=== PATIENT | male | born 1940 | race African-American/Black ===

== ENCOUNTER 2017-10-18 15:07 | Emergency (ER) | payer OTHER ==
[~2017-10-18] VITALS: Ht 185.4 cm; Wt 81.7 kg
--- NOTE | ~2017-10-18 | EKG ---
[address] [address] [place] [address] ELECTROCARDIOGRAM REPORT Name: QUE CHRISTIANSON [facility] [id number] Admission: 10/18/17 Attend Phys: Discharge: 10/18/17 Date of : 40 Report #: [id number] THIS REPORT FOR: //name// [facility] ED Test Date: 2017-10-18 Test Time: 16:41:50 Pat Name: QUE CHRISTIANSON Department: Room: Gender: M Railroad Purchasing Agent: : 1940 Requested By: Mariam Ding Order Number: [id number] MD: Pablo King Measurements Intervals [place] Rate: 73 P: 41 [place]: 162 QRS: 6 QRSD: 81 T: 40 QT: 407 QTc: 449 Interpretive Statements Sinus rhythm Atrial premature complexes in couplets Borderline T wave abnormalities Compared to ECG 07/19/2016 03:15:59 Atrial premature complex(es) now present T-wave abnormality now present Electronically Signed On 10-19-2017 8:51:30 CDT by Pablo King [email or web address] <ELECTRONICALLY SIGNED> By: Pablo King MD, [facility] 10/19/17 0851 164 40 Pablo King MD, [facility] /EPI
[~2017-10-18 15:07] MED LIST: AMOXICILLIN 50500 MG PO; ARICEPT10 M1 PO; ASPIR 8181 MG PO; AZITHROMYCIN 2250 MG PO; BRIMONIDINE TAR1 BO1; CARVEDILOL12.5 MG PO; COMBIGAN EYE DR10 ML OPHTHALMIC; COREG25 MG PO; ENOXAPARIN40 MG/0.1 SUBQ; FLOMAX0.4 MG PO; GLUCOPHAGE1000 MG PO; GLYBURIDE 5 MG T5 MG PO; HUMALOG100 UNIT/1 SQ; HUMALOG100 UNIT/1 SUBQ; HUMALOG100 UNIT/2 SQ; HYDROCHLOROTHIA25 M1 PO; HYDROCHLOROTHIA25 M2 PO; LANTUS SC; LANTUS SOL100 UNIT/1 SQ; LANTUS100 UNIT/M SUBQ; LISINOPRIL20 MG PO; NORCO 5-325 TA1 EACH PO; NOVOLOG100 UNIT/1 SUBQ; PLAVIX 75 MG TA75 M1 PO; PROZAC20 MG PO; REFRESH CLASSI1 EACH OPHTHALMIC; SIMVASTATIN40 MG PO; TIMOLOL MA0.25 %/5 M; TRAZODONE HCL50 MG PO; ZOCOR 20 MG TAB20 M1 PO
[2017-10-18 15:33] LABS: ABSOLUTE NEUTROPHILS 2.1 thou/uL (1.4-8.2); BASOPHILS 1.2 % (0.0-2.0); EOSINOPHILS 4.7 % (0.0-3.0); HEMATOCRIT 30.3 % (42.0-52.0); HEMOGLOBIN 9.9 gm/dL (14.0-18.0); LYMPHOCYTES 35.8 % (24.0-44.0); MCH 26.2 pg (26.0-34.0); MCHC 32.8 g/dL (28.0-37.0); MCV 79.8 fL (80.0-100.0); PLATELET COUNT 292 thou/uL (150-400); POLYS 47.3 % (36.0-66.0); RBC 3.79 mil/uL (4.50-6.00); RDW 15.9 % (10.5-14.5); WBC 4.5 thou/uL (4.0-11.0)
[2017-10-18 15:42] LABS: ANION GAP 5 mmol/L (7-16); BUN 22 mg/dL (7-18); CALCIUM 8.5 mg/dL (8.5-10.1); CHLORIDE 109 mmol/L (98-107); CO2 28 mmol/L (21-32); CREATININE 1.3 mg/dL (0.7-1.3); GLUCOSE 232 mg/dL (74-106); POTASSIUM 4.1 mmol/L (3.5-5.1); SODIUM 142 mmol/L (136-145)
[2017-10-18 15:48] LABS: ALBUMIN 2.7 g/dL (3.4-5.0); DIRECT BILIRUBIN < 0.1 mg/dL (<0.1-0.3); LIPASE 196 U/L (73-393); SGOT 12 U/L (15-37); SGPT 19 U/L (30-65); TOTAL BILIRUBIN 0.2 mg/dL (<0.1-1.0); TOTAL PROTEIN 6.1 g/dL (6.4-8.2)
[2017-10-18 17:14] LABS: URINE BILIRUBIN NEGATIVE (Negative); URINE BLOOD NEGATIVE (Negative); URINE CLARITY CLEAR; URINE COLOR YELLOW; URINE GLUCOSE-RANDOM* NEGATIVE (Negative); URINE KETONES NEGATIVE (Negative); URINE LEUKOCYTES-REFLEX NEGATIVE (Negative); URINE NITRITE-REFLEX NEGATIVE (Negative); URINE PROTEIN (DIPSTICK) NEGATIVE (Negative); URINE SPECIFIC GRAVITY 1.025 (1.005-1.035); URINE UROBILINOGEN 0.2 E.U./dl (0.2-1.0)
[2017-10-18 18:08] VITALS: BP 123/54
== END 2017-10-18 18:08 | disposition home or self-care (01) ==
LOC: ER 15:07
PROVIDERS: Emergency Medicine
DX: R19.7 Diarrhea, unspecified (principal); R10.30 Lower abdominal pain, unspecified; E11.9 Type 2 diabetes mellitus without complications; G30.9 Alzheimer's disease, unspecified; F02.80 Dementia in other diseases classified elsewhere, unspecified severity, without behavioral disturbance, psychotic disturbance, mood disturbance, and anxiety; Z86.73 Personal history of transient ischemic attack (TIA), and cerebral infarction without residual deficits; Z87.891 Personal history of nicotine dependence

== ENCOUNTER 2018-07-18 22:34 | Inpatient (IN) | payer OTHER ==
[~2018-07-18] VITALS: Ht 185.4 cm; Wt 99.8 kg
[2018-07-18 22:36] VITALS: BP 129/72
[2018-07-18 23:03] LABS: ABSOLUTE NEUTROPHILS 8.4 thou/uL (1.4-8.2); BASOPHILS 1.1 % (0.0-2.0); EOSINOPHILS 0.2 % (0.0-3.0); HEMATOCRIT 33.5 % (42.0-52.0); HEMOGLOBIN 10.9 gm/dL (14.0-18.0); LYMPHOCYTES 14.2 % (24.0-44.0); MCHC 32.6 g/dL (28.0-37.0); MCV 76.7 fL (80.0-100.0); MONOCYTES 7.8 % (1.0-8.0); PLATELET COUNT 278 thou/uL (150-400); POLYS 76.7 % (36.0-66.0); RBC 4.37 mil/uL (4.50-6.00); RDW 15.3 % (10.5-14.5)
[2018-07-18 23:08] LABS: ANION GAP 9 mmol/L (7-16); BUN 18 mg/dL (7-18); CALCIUM 8.9 mg/dL (8.5-10.1); CHLORIDE 99 mmol/L (98-107); CO2 29 mmol/L (21-32); GLUCOSE 230 mg/dL (74-106); POTASSIUM 3.8 mmol/L (3.5-5.1); SODIUM 137 mmol/L (136-145)
[2018-07-18 23:17] LABS: ALBUMIN 2.8 g/dL (3.4-5.0); MAGNESIUM 1.4 mg/dL (1.8-2.4); SGOT 11 U/L (15-37); SGPT 12 U/L (30-65); TOTAL BILIRUBIN 0.2 mg/dL (<0.1-1.0); TOTAL PROTEIN 6.6 g/dL (6.4-8.2); TROPONIN-I <0.06 ng/mL (<0.06)
[2018-07-19] VITALS (7 sets, daily range): BP systolic 107–156; BP diastolic 49–76
[2018-07-19] MEDS ORDERED: HYDROCHLOROTHIA25 M2 PO (00:06)
[2018-07-19 00:11] LABS: AMP/METHAMP Negative (Negative); BARBITURATES Negative (Negative); BENZODIAZEPINES Negative (Negative); COCAINE Negative (Negative); METHADONE Negative (Negative); OPIATES Negative (Negative); PCP Negative (Negative)
[2018-07-19 00:13] LABS: URINE BILIRUBIN NEGATIVE (Negative); URINE BLOOD 3+ (Negative); URINE CLARITY CLOUDY; URINE COLOR RED; URINE GLUCOSE-RANDOM* TRACE (Negative); URINE KETONES NEGATIVE (Negative); URINE LEUKOCYTES-REFLEX 2+ (Negative); URINE NITRITE-REFLEX NEGATIVE (Negative); URINE PROTEIN (DIPSTICK) 2+ (Negative); URINE SPECIFIC GRAVITY 1.015 (1.005-1.035); URINE UROBILINOGEN 0.2 E.U./dl (0.2-1.0)
[2018-07-19 00:17] LABS: CASTS None Seen /LPF (None Seen); SQUAMOUS 4-10 Moderate /LPF (0-3); URINE RBC >20 Many /HPF (0-2); WBC CLUMPS Moderate (None Seen)
[2018-07-19 00:18] LABS: CRYSTALS None Seen /LPF (None Seen)
--- NOTE | 2018-07-19 05:56 | NUR ---
PATIENT IS ALERT TO SELF AND SITUATION. PATIENT IS BLIND AND REQUIRES ASSISTANCE WITH ADLS. PATIENT USES A CANE AT HOME. PATIENT IS GOING TO BE UP ONE TO TWO. PATIENT APPEARED TO BE IN A FIB AT ONE POINT WAS UNABLE TO CATCH IT ON EKG. PATIENT IS ACHS ACCUCHECK FOR DM. PATIENT IS INCONTIENT. NO FEVER. PATIENT IS A POOR HISTORIAN. PATIENT HAS BACK PAIN ONLY WITH MOVEMENT. PATIENT IS RESTING COMFORTABLY IN BED. WCM. PATIENT IS PROGRESSING TO GOALS.
--- NOTE | 2018-07-19 08:24 | EKG ---
[address] [place] [address] ELECTROCARDIOGRAM REPORT Name: QUE CHRISTIANSON MAKAYLA Room #: 359-P ADM IN M.R.#: [id number] ������������������ Admission: 07/19/18 ������������������ Attend Phys: Eulogio Conroy MD Discharge: ������������������ Date of : 40 Report #: [id number] ����������������������������������������������������������������� [id number] THIS REPORT FOR: //name// [facility] ED Test Date: 2018-07-18 Test Time: 22:42:37 Pat Name: QUE CHRISTIANSON Department: Room: 359 Gender: M Cash Applications Manager: KMJonathan : 1940 Requested By: Chapo Gauthier Order Number: [id number] MD: Pablo King Measurements Intervals [place] Rate: 102 P: 54 [place]: 155 QRS: 36 QRSD: 78 T: 45 QT: 357 QTc: 466 Interpretive Statements Sinus tachycardia Borderline T wave abnormalities Compared to ECG 10/18/2017 16:41:50 Sinus rhythm no longer present Atrial premature complex(es) no longer present Electronically Signed On 07-19-2018 8:24:12 CDT by Pablo King [email or web address] ��������������������������������������������� <ELECTRONICALLY SIGNED> ���������������������������������������� By: Pablo King MD, [facility] ��������������������������������������������� 07/19/18 0824 2242 224 Pablo King MD, [facility] /EPI
--- NOTE | 2018-07-19 08:25 | EKG ---
[address] [address] ELECTROCARDIOGRAM REPORT Name: QUE CHRISTIANSON MAKAYLA Room #: 359-P ADM IN M.R.#: [id number] ������������������ Admission: 07/19/18 ������������������ Attend Phys: Eulogio Conroy MD Discharge: ������������������ Date of : 40 Report #: [id number] ����������������������������������������������������������������� [id number] THIS REPORT FOR: //name// [facility] Test Date: 2018-07-19 Test Time: 05:47:36 Pat Name: QUE CHRISTIANSON Department: Room: 359 P Gender: M Lunchroom Supervisor: dane : 1940 Requested By: Eulogio Conroy Order Number: [id number] MD: Ricci Walters Measurements Intervals [place] Rate: 72 P: 48 [place]: 164 QRS: 20 QRSD: 82 T: 20 QT: 386 QTc: 423 Interpretive Statements Sinus rhythm Compared to ECG 10/18/2017 16:41:50 Atrial premature complex(es) no longer present T-wave abnormality no longer present Electronically Signed On 07-19-2018 8:25:20 CDT by Ricci Walters [email or web address] ��������������������������������������������� <ELECTRONICALLY SIGNED> ���������������������������������������� By: Ricci Walters MD ��������������������������������������������� 07/19/18 0825 0547 0547 Ricci Walters MD /EPI
--- NOTE | 2018-07-19 08:26 | EKG ---
[address] [address] ELECTROCARDIOGRAM REPORT Name: MEGHANQUE LEE Room #: 359-P ADM IN M.R.#: [id number] ������������������ Admission: 07/19/18 ������������������ Attend Phys: Eulogio Cnoroy MD Discharge: ������������������ Date of : 40 Report #: [id number] ����������������������������������������������������������������� [id number] THIS REPORT FOR: //name// [facility] Test Date: 2018-07-19 Test Time: 07:48:45 Pat Name: QUE CHRISTIANSON Department: Room: 359 P Gender: M Export Freight Manager: JULIANO : 1940 Requested By: Idania Guerrero Order Number: [id number] MD: Ricci Walters Measurements Intervals [place] Rate: 69 P: -29 [place]: 167 QRS: 20 QRSD: 84 T: 33 QT: 401 QTc: 430 Interpretive Statements Sinus rhythm Compared to ECG 10/18/2017 16:41:50 Atrial premature complex(es) no longer present T-wave abnormality no longer present Electronically Signed On 07-19-2018 8:26:43 CDT by Ricci Walters [email or web address] ��������������������������������������������� <ELECTRONICALLY SIGNED> ���������������������������������������� By: Ricci Walters MD ��������������������������������������������� 07/19/18 0826 0748 Ricci Walters MD /EPI
--- NOTE | 2018-07-19 15:23 | NUR ---
ASSESSMENT: CM REVIEWED CHART AND MET WITH PATIENT AT THE BEDSIDE. PT STATES IT IS HARD FOR HIM TO OPEN HIS EYES BECAUSE IT IS BRIGHT. PT WAS ADMITTED DUE TO WEAKNESS/UTI. PT REPORTS HE LIVES AT HOME WITH HIS BROTHER. PT STATING HE IS HAVING A HARD TIME STAYING AWAKE. CM ASKED IF CM CAN CONTACT HIS DAUGHTER FOR MORE INFORMATION AND HE STATED YES. TATO IS PATIENTS GRANDDAUGHTER AND ALSO WORKS AT [employer]. SHE REPORTS PATIENT LIVES AT HOME WITH HIS WELL HIS BROTHER STAYS THERE AND HIS SON. PT AND HIS HAVE MEDICAID SERVICES WHERE A WASHER BLANKET COMES IN 7 DAYS A WEEK FOR ABOUT 8 HOURS. PT REPORTS HE USES A CANE FOR AMBULATION. CM DISCUSSED ROLE. PT/OT RECOMMENDING SNF AND PT STATES HE WOULD BE AGREEABLE TO GO TO A SNF AND TO TALK WITH HIS FAMILY. CM DISCUSSED WITH TATO AND WILL LEAVE AN ADVANTRA LIST FOR HER TO REVIEW. SHE STATES SHE IS IN [place] BUT WILL BE AT THE HOSPITAL TOMORROW. CM WILL CONTINUE TO FOLLOW. NO PLANS FOR WEEKEND DISCHARGE.
--- NOTE | 2018-07-19 16:27 | NUR ---
AAOX2 PERSON AND PLACE. VERY SLEEPY ALL DAY BUT AROUSES FOR MEAL. POOR APPETITE NEEDS MAX ASSISTANCE WITH MEALS. INCONTINENT OF URINE AND STOOL THIS SHIFT. UP TO RECLINER WITH 2 ASSIST. IV LEFT AC WITH FLUIDS INFUSING. FAMILY HAS BEEN IN ROOM A FEW TIMES TODAY. LUNGS CLEAR ON ROOM AIR.
[2018-07-20] VITALS (7 sets, daily range): BP systolic 137–193; BP diastolic 64–87
--- NOTE | 2018-07-20 06:24 | NUR ---
SLEPT PART OF SHIFT. REPOSITIONED EVERY 2-3 HOURS FOR COMFORT AND SKIN CARE. INCONTINENT OF STOOL. MALE CATHETER IN PLACE. PATIENT TOOK OFF CATH X1 AND REPLACED. WORKING ON GOALS AND PLAN OF CARE FOR NOC. PROGRESSING SLOWLY TOWARDS DISCHARGE GOALS. NEEDS FREQUENT REASSURANCE WHERE IS AND WHY IS IN HOSPITAL. CONTINUE TO ASSES.
[2018-07-20 09:44] LABS: HEMATOCRIT 28.3 % (42.0-52.0); HEMOGLOBIN 9.1 gm/dL (14.0-18.0); MCH 25.2 pg (26.0-34.0); MCV 78.9 fL (80.0-100.0); RBC 3.59 mil/uL (4.50-6.00); RDW 15.9 % (10.5-14.5); WBC 5.9 thou/uL (4.0-11.0)
[2018-07-20 09:49] LABS: CALCIUM 8.3 mg/dL (8.5-10.1); CREATININE 0.9 mg/dL (0.7-1.3); MAGNESIUM 1.5 mg/dL (1.8-2.4); POTASSIUM 3.8 mmol/L (3.5-5.1)
--- NOTE | 2018-07-20 17:47 | NUR ---
Assumed care of pt at 0700. Today pt has been confused but is orientated to person. Pt is up with 1-2 assists, has been sitting up in chair, and has been up to commode. Pt is incontinent of stool but will sometimes notify when he needs to use the commode. One soft BM today in commode. Urine looks clear, dark yellow. Patient was pleasant through majority of day but seems to have increasing anxiety/agitation as the evening progresses. Son has been at bedside today and patient has spoken with on the phone. Pt's vital signs and labs have remained stable today. Patient is slowly progressing toward discharge goals. Will continue to monitor and assess.
[2018-07-21 03:25] VITALS: BP 199/94
--- NOTE | 2018-07-21 04:52 | NUR ---
SLEPT PART OF SHIFT. VERY CONFUSED TONIGHT LOOKING FOR , KEYS, BILLFOLD, ECT. CALLED AND PATIENT CALMED DOWN FOR SHORT PERIOD. PULLED MALE CATH OFF X2. INCONTINENT AT TIMES. TURNS SELF AND TRYING TO GET OUT OF BED STATING I NEED TO GO TO MY . WORKING ON GOALS AND PLAN OF CARE FOR NOC. REASSURE AND REORIENT PATIENT NEEDED. CONTINUE TO OBSERVE CLOSELY. BED ALARM ON. PROGRESSING SLOWLY TOWARDS DISCHARGE GOALS.
--- NOTE | 2018-07-21 04:58 | NUR ---
SYSTOLIC BLOOD PRESSURE ELEVATED TONIGHT. CREATIVE SERVICES DIRECTOR CALLED X2 AND ORDERS RECIEVED FOR IVP HYDRALIZINE. CONTINUE TO ASSES. INCONTINENT URINE AT TIMES
[2018-07-21 05:00] LABS: FOLIC ACID 13.7 ng/mL (8.6-58.9)
[2018-07-21 07:16] VITALS: BP 158/94
[2018-07-21 09:39] LABS: HEMATOCRIT 31.9 % (42.0-52.0); HEMOGLOBIN 10.3 gm/dL (14.0-18.0); MCH 25.2 pg (26.0-34.0); MCHC 32.4 g/dL (28.0-37.0); MCV 77.8 fL (80.0-100.0); RBC 4.1 mil/uL (4.50-6.00); RDW 15.7 % (10.5-14.5); WBC 5.2 thou/uL (4.0-11.0)
[2018-07-21 09:42] LABS: CALCIUM 8.6 mg/dL (8.5-10.1); CREATININE 0.8 mg/dL (0.7-1.3); MAGNESIUM 1.5 mg/dL (1.8-2.4); POTASSIUM 3.6 mmol/L (3.5-5.1)
[2018-07-21 09:46] LABS: % SATURATION 13 % (20-39); IRON 28 ug/dL (65-175); TIBC 216 ug/dL (250-450)
--- NOTE | 2018-07-21 10:40 | EKG ---
[address] [address] [facility] [place] [address] ELECTROCARDIOGRAM REPORT Name: QUE CHRISTIANSON Room #: 359-P ADM IN M.R.#: [id number] ������������������ Admission: 07/19/18 ������������������ Attend Phys: Eulogio Conroy MD Discharge: ������������������ Date of : 40 Report #: [id number] ����������������������������������������������������������������� [id number] THIS REPORT FOR: //name// [facility] Test Date: 2018-07-21 Test Time: 10:09:32 Pat Name: QUE CHRISTIANSON Department: Room: 359 P Gender: M Veterinary Receptionist: BS : 1940 Requested By: Eulogio Conroy Order Number: [id number] MD: Bernardino Mcconnell Measurements Intervals [place] Rate: 76 P: 50 ID: [id number] QRS: 36 QRSD: 80 T: 30 QT: 405 QTc: 456 Interpretive Statements Sinus rhythm Ventricular premature complex Compared to ECG 07/19/2018 07:48:45 Ventricular premature complex(es) now present Electronically Signed On 07-21-2018 10:40:21 CDT by Bernardino Mcconnell [email or web address] ��������������������������������������������� <ELECTRONICALLY SIGNED> ���������������������������������������� By: Bernardino Mcconnell MD ��������������������������������������������� 07/21/18 1040 D: 04/1008 08 Bernardino Mcconnell MD /LENNY
[2018-07-21 16:23] VITALS: BP 145/71
--- NOTE | 2018-07-21 19:29 | NUR ---
Assumed care of patient at 0700. BP improved this shift. Patient SR on telemetry, but noticing bursts of ST, rates 130s-150s, sustaining 30 seconds to [address] Conroy. EKG and labs ordered. Increased Coreg. Magnesium replaced IV x1. Rates have since improved. Patient alert and oriented x1, confused. Patient pleasant and easily redirectable this shift until about 1400. Patient getting increasingly confused and agitated. Becoming combative with staff and unable to redirect. Walked hallways with patient in attempt to help redirect, but unsuccessful. Notified Dr. Conroy. Order for 1 mg Haldol PRN. Given without any successful effects. Updated physician. Order for onetime 2 mg IV Haldol, as well as PRN order. Order for 1:1 sitter and PRN Ativan, as well. PRN Haldol IV given and patient has since began to calm down some. Is still restless and fidgety, but is more appropriate with staff and more cooperative with cares. Updated granddaughter, Bouchra, over the phone of changes and sitter at bedside. Patient currently sitting in chair, fall precautions in place, sitter at bedside. Not yet progressing towards POC. Will continue to monitor.
[2018-07-21 20:54] VITALS: BP 135/82
[2018-07-22 03:55] VITALS: BP 125/75
[2018-07-22 05:16] LABS: HEMATOCRIT 27.8 % (42.0-52.0); HEMOGLOBIN 9.1 gm/dL (14.0-18.0); MCH 25.1 pg (26.0-34.0); MCHC 32.6 g/dL (28.0-37.0); MCV 77.1 fL (80.0-100.0); RBC 3.61 mil/uL (4.50-6.00); RDW 15.5 % (10.5-14.5); WBC 3.6 thou/uL (4.0-11.0)
[2018-07-22 05:23] LABS: CALCIUM 8.4 mg/dL (8.5-10.1); CREATININE 0.8 mg/dL (0.7-1.3); MAGNESIUM 1.6 mg/dL (1.8-2.4); POTASSIUM 3.1 mmol/L (3.5-5.1)
--- NOTE | 2018-07-22 06:20 | NUR ---
Assumed care at 1845. Pt resting in bed. AOX1. No issues with BP or HR. VSS. Pt hasnt been agressive throught the shift. Contract Consultant discontinued sitter. Only gave haloperidol one time for mild aggression. Been in lowest position. No identified needs at the moment. Will continue to monitor.
[2018-07-22 07:53] VITALS: BP 149/59
--- NOTE | 2018-07-22 10:41 | NUR ---
SW reviewed chart and spoke with nursing. Pt is progressing towards goals for discharge. Pt had 1:1 sitter over the weekend. Sitter was discontinued during shift superintendent caustic cresylate. DARY spoke with pt's grand-dtr, Bouchra, via phone to discuss post-acute placement. Per Bouchra, family would like referrals to be sent to [facility] and [facility]. Will need insurance authorization. materials planner to fax referrals to SNFs for review. DARY is following to assist as needed with discharge planning.
--- NOTE | 2018-07-22 10:51 | NUR ---
DP SENT INITIAL REFERRAL FOR SKILLED TO [facility] AND [facility], LIKELY DISCHARGE TOMORROW. DP ALSO NOTIFIED ADMISSIONS DEPTARTMENT AT BOTH FACILITIES.
[2018-07-22 15:29] VITALS: BP 136/58
[2018-07-22 17:31] LABS: POTASSIUM 3.9 mmol/L (3.5-5.1)
[2018-07-22 19:05] VITALS: BP 141/73
--- NOTE | 2018-07-22 19:33 | NUR ---
care of pt assumed this am @ ~0700. pt noted to be resting in bed quietly and comfortably most of the day. pt calm, cooperative and pleasant the majority of the day, the only time he became frustrated and uncooperative was when his condom catheter had to be removed and replaced (x3) due to his picking and pulling at it to dislodge it. pt w/ a fair appetite for food and fluid today, pt was not will to feed himself today when set up and encouraged, but would consume food when fed and drink liquid when placed at his lips. pt w/o n/v/d today. pt noted to be incontinent of urine several times today. pt has denied the co pain today. pt up to the chair, for several hours today, by pt and back to bed from his chair by x2 nrsg staff. x2 family members at early this afternoon. possible rehab/skilled facility placement per cm/sw in the next few days.
[2018-07-23 03:30] VITALS: BP 140/69
--- NOTE | 2018-07-23 04:43 | NUR ---
ASSUMED PT CARE AROUND 1900. ORIENTED TO SELF ONLY. PT IS CONFUSED BUT HAS BEEN COOPERATIVE AND NOT IMPULSIVE THIS SHIFT. PT SLEPT MOST OF THE NIGHT. RESP EVEN AND UNLABORED. IVF INFUSING ORDERED. REPOSITIONED TO PREVENT SKIN BREAKDOWN. VSS. FALL PRECAUTIONS IN PLACE. PROGRESSING SLOWLY TOWARD POC GOALS. WILL CONTINUE TO MONITOR FURTHER.
[2018-07-23 05:37] LABS: HEMOGLOBIN 9.2 gm/dL (14.0-18.0); MCH 25.6 pg (26.0-34.0); MCHC 32.9 g/dL (28.0-37.0); MCV 77.8 fL (80.0-100.0); RBC 3.6 mil/uL (4.50-6.00); RDW 15.5 % (10.5-14.5); WBC 3.3 thou/uL (4.0-11.0)
[2018-07-23 05:42] LABS: CALCIUM 8.2 mg/dL (8.5-10.1); CREATININE 0.9 mg/dL (0.7-1.3); MAGNESIUM 1.7 mg/dL (1.8-2.4); POTASSIUM 3.6 mmol/L (3.5-5.1)
[2018-07-23 07:36] VITALS: BP 172/68
--- NOTE | 2018-07-23 11:34 | NUR ---
program services planner sent updates to both Aparna Farmer and Courtney bradley [place], patient may possibly dc today, requested facility let us know if they can accept patient.
--- NOTE | 2018-07-23 13:41 | NUR ---
SW reviewed chart and spoke with nursing and attending physician. Pt is progressing toward goals for discharge to post-acute. [facility] did onsite eval today and can accept pt. Awaiting input from [facility] at this time. [facility] liaison was supposed to come to onsite eval today. DARY spoke with pt's granddtrBouchra, via phone to provide update and discuss SNF. Family preference is [facility]. SW notified Roshni in admissions at [facility]. Awiating input from [facility] at this time. Will need insurance authorization. SW is following to assist as needed with discharge planning.
[2018-07-23 16:09] VITALS: BP 166/75
[2018-07-23 19:17] VITALS: BP 122/67
--- NOTE | 2018-07-24 01:56 | NUR ---
0130 BLOOD SUGAR IS 59. HE WAS ENCOUARGED TO EAT A SMALL SNACK AND IS NOW 121. HE IS UNCOOPERATIVE AND WANTING TO LEAVE. HE IS PULLING AT IV LINE AND REFUSING TO ALOW THE CONDOM CATHER TO BE REPLACED
[2018-07-24 03:08] VITALS: BP 191/81
[2018-07-24 04:30] VITALS: BP 139/56
--- NOTE | 2018-07-24 06:21 | NUR ---
pt has been awake most of the night. he needs encouraging to use the urinal. however, he is incontinent most of the times. refuses to allow the placement of the condom catheter tonight. he can be very uncooperative and has difficulty with cooridinating his movements, getting out of bed to bsc.
[2018-07-24 07:33] VITALS: BP 144/69
[2018-07-24 08:51] VITALS: BP 144/69
--- NOTE | 2018-07-24 10:11 | NUR ---
DARY received call from pt's granddtr, Bouchra, stating that pt's family is agreeable with pt going to [facility]. DARY updated [place] pricing coordinator and liaison who has submitted for insurance authorization. DARY is following to assist as needed with discharge planning.
[2018-07-24] MEDS ORDERED: COREG25 MG PO (12:45)
[2018-07-24] MEDS ORDERED: DEPAKOTE ER250 MG PO (12:45)
[2018-07-24] MEDS ORDERED: IRON325 PO (12:45)
[2018-07-24] MEDS ORDERED: VITAMIN B-12500 MCG PO (12:45)
[2018-07-24] MEDS ORDERED: B12INJ IM (12:54)
--- NOTE | 2018-07-24 17:10 | NUR ---
Assumed pt care this am, initially pt was calm but very forgetful and looked for his . Pt is incontinent but was able to place a condm cat initially. Pt can eat on his own with assistance, pt is blind. Towards mid afternoon pt was starting to get aggitated and removed his condom cat. Pt wanted to see his who is on [facility]. POC followed and medication given. DC orders given and report called out to [facility] nurse, pt was seen by his grandaughtter (Bouchra) as transport has come to pick him up for transfer. IV removed, pt cleaned and dressed up. Pt is now dc.
== END 2018-07-24 17:00 | DRG 689 ==
LOC: ER 22:34 → EROBS 07-19 02:01 → 3W 07-19 02:01
PROVIDERS: Emergency Medicine; Nurse Practitioner Family; ADMIT Internal Medicine
DX: N39.0 Urinary tract infection, site not specified (principal); E43 Unspecified severe protein-calorie malnutrition; I47.1 Supraventricular tachycardia; G93.40 Encephalopathy, unspecified; H54.7 Unspecified visual loss; G30.9 Alzheimer's disease, unspecified; F02.80 Dementia in other diseases classified elsewhere, unspecified severity, without behavioral disturbance, psychotic disturbance, mood disturbance, and anxiety; E88.09 Other disorders of plasma-protein metabolism, not elsewhere classified; E83.42 Hypomagnesemia; E11.65 Type 2 diabetes mellitus with hyperglycemia; D50.9 Iron deficiency anemia, unspecified; E87.6 Hypokalemia; E53.8 Deficiency of other specified B group vitamins; Z86.73 Personal history of transient ischemic attack (TIA), and cerebral infarction without residual deficits; Z87.891 Personal history of nicotine dependence; Z79.899 Other long term (current) drug therapy
CPT/HCPCS: 10879

== ENCOUNTER 2019-04-08 11:26 | Inpatient (IN) | payer OTHER ==
[~2019-04-08] VITALS: Ht 182.9 cm; Wt 75.5 kg
[2019-04-08 11:26] VITALS: BP 128/48
[~2019-04-08 11:26] MED LIST changes: +B12INJ IM; +DEPAKOTE ER250 MG PO; +IRON325 PO; +VITAMIN B-12500 MCG PO
[2019-04-08 11:52] LABS: ABSOLUTE NEUTROPHILS 2.1 thou/uL (1.4-8.2); BASOPHILS 1.1 % (0.0-2.0); HEMATOCRIT 30.6 % (42.0-52.0); HEMOGLOBIN 9.8 gm/dL (14.0-18.0); LYMPHOCYTES 30.9 % (24.0-44.0); MCH 25.3 pg (26.0-34.0); MCHC 32.2 g/dL (28.0-37.0); MCV 78.7 fL (80.0-100.0); MONOCYTES 10.5 % (1.0-8.0); PLATELET COUNT 273 thou/uL (150-400); POLYS 54.5 % (36.0-66.0); RBC 3.88 mil/uL (4.50-6.00); RDW 14.6 % (10.5-14.5); WBC 3.9 thou/uL (4.0-11.0)
[2019-04-08 12:18] LABS: CALCIUM 8.9 mg/dL (8.5-10.1); POTASSIUM 3.7 mmol/L (3.5-5.1)
[2019-04-08 12:23] LABS: ALBUMIN 2.6 g/dL (3.4-5.0); TOTAL BILIRUBIN 0.2 mg/dL (<0.1-1.0); TOTAL PROTEIN 6.1 g/dL (6.4-8.2)
[2019-04-08 13:08] LABS: URINE BILIRUBIN NEGATIVE (Negative); URINE BLOOD NEGATIVE (Negative); URINE CLARITY CLEAR; URINE COLOR YELLOW; URINE GLUCOSE-RANDOM* 2+ (Negative); URINE KETONES NEGATIVE (Negative); URINE LEUKOCYTES-REFLEX NEGATIVE (Negative); URINE NITRITE-REFLEX NEGATIVE (Negative); URINE PROTEIN (DIPSTICK) TRACE (Negative); URINE SPECIFIC GRAVITY 1.025 (1.005-1.035)
--- NOTE | 2019-04-08 13:14 | EKG ---
[facility] [place] [address] ELECTROCARDIOGRAM REPORT Name: QUE CHRISTIANSON MAKAYLA [id number] Admission: 04/08/19 Attend Phys: Discharge: Date of : 40 Report #: [id number] THIS REPORT FOR: //name// [facility] ED Test Date: 2019-04-08 Test Time: 11:28:08 Pat Name: QUE CHRISTIANSON Department: Room: Gender: M Clinical Research Manager: SHAHBAZ : 1940 Requested By: Coral Sy Order Number: [id number] MD: Pablo King Measurements Intervals [place] Rate: 73 P: 34 [place]: 158 QRS: 34 QRSD: 143 T: 98 QT: 422 QTc: 465 Interpretive Statements Sinus rhythm Left ventricular hypertrophy Baseline wander in lead(s) II,III,aVF Compared to ECG 07/21/2018 10:09:32 Ventricular premature complex(es) no longer present Electronically Signed On 04-08-2019 13:13:52 GOVERNMENT AFFAIRS RESEARCHER by Pablo King [email or web address] <ELECTRONICALLY SIGNED> By: Pablo King MD, [facility] 04/08/19 1313 1128 1128 Pablo King MD, [facility] /EPI
[2019-04-08 15:50] VITALS: BP 102/43
[2019-04-08 16:05] VITALS: BP 102/43
[2019-04-08 16:15] VITALS: BP 123/63
--- NOTE | 2019-04-08 16:27 | NUR ---
PT ADMITTED TO ROOM 213. PT WITHOUT FAMILY PRESENT. PT ORIENTED TO PERSON ONLY. DOES NOT COOPERATE WITH CARES. PULLS AT EVERYTHING, TAKING OFF TELE PATCHES AND GOWN CONSTANTLY. PT PULLED OUT IV ON THE WAY TO ROOM FROM ED. UNABLE TO ANSWER ADMISSION QUESTIONS. BED ALARM SET. WILL CONTINUE TO MONITOR.
--- NOTE | 2019-04-08 17:34 | NUR ---
RECALLED WHAT WAS AVAILABLE FOR ADMISSION, UNABLE TO ASSESS THE REST
--- NOTE | 2019-04-08 17:55 | NUR ---
SPOKE WITH AAN, WILL HOLD OFF ON IV INSERTION FOR NOW UNLESS IV MEDICATIONS ORDERED
[2019-04-08 20:30] VITALS: BP 142/65
[2019-04-09 00:15] VITALS: BP 132/63
[2019-04-09 02:00] VITALS: BP 132/63
--- NOTE | 2019-04-09 05:15 | NUR ---
PATIENTS CARES WERE ASSUMED AT SHIFT CHANGE. PATIENT EAT A DINNER WITH HIS GRADAUGHTER WHILE SHE WAS HERE, STILL ALOT OF CONFUSION TO WHEN AND HOW MUCH MEDICATIONS HE TAKESE DSILY. HOURLY ROUNDS BEEN DONE. THE BED IS IN A LOW AEN LOCKED POSITION. THE BED ALARM IS ON
[2019-04-09 08:40] VITALS: BP 129/53
[2019-04-09 09:40] LABS: HEMATOCRIT 32.8 % (42.0-52.0); HEMOGLOBIN 10.3 gm/dL (14.0-18.0); MCH 24.9 pg (26.0-34.0); MCHC 31.5 g/dL (28.0-37.0); RBC 4.15 mil/uL (4.50-6.00); RDW 14.8 % (10.5-14.5); WBC 3.1 thou/uL (4.0-11.0)
[2019-04-09 09:54] LABS: ALBUMIN 2.5 g/dL (3.4-5.0); CALCIUM 8.6 mg/dL (8.5-10.1); CREATININE 0.9 mg/dL (0.7-1.3); MAGNESIUM 1.7 mg/dL (1.8-2.4); POTASSIUM 3.6 mmol/L (3.5-5.1); TOTAL BILIRUBIN 0.2 mg/dL (<0.1-1.0); TOTAL PROTEIN 5.9 g/dL (6.4-8.2)
[2019-04-09 10:21] LABS: TSH 1.56 uIU/mL (0.358-3.740)
[2019-04-09 12:21] VITALS: BP 130/59
--- NOTE | 2019-04-09 13:07 | 2DMMODE ---
[facility] [address] [place] [address] 2 D/M-MODE ECHOCARDIOGRAM Name: QUE CHRISTIANSON MAKAYLA Room #: 217-P ADM IN M.R.#: [id number] Admission: 04/08/19 Attend Phys: Swapnil Thomas MD Discharge: Date of : 40 Report #: [id number] THIS REPORT FOR: //name// APPROVED REPORT Study performed: 04/09/2019 11:02:35 EXAM: Comprehensive 2D, Doppler, and color-flow Echocardiogram Patient Location: Bedside Room #: 217 Status: routine BSA: 1.99 HR: 65 bpm BP: 129/53 mmHg Rhythm: NSR Other Information Study Quality: Adequate Indications Diabetes CAD Syncope Hypertension/HDD 2D Dimensions RVDd: 32.29 mm IVSd: 11.47 (7-11mm) LVOT Diam: 21.21 (18-24mm) LVDd: 39.72 mm PWd: 10.78 (7-11mm) Ascending Ao: 31.06 (22-36mm) LVDs: 29.77 (25-40mm) Aortic Root: 36.01 mm IVC: 17.00 mm Volumes Left Atrial Volume (Systole) Single Plane 4CH: 68.99 mL Single Plane 2CH: 42.13 mL LA ESV Index: 29.00 mL/m2 Aortic Valve AoV Peak Thee.: 1.27 m/s AO Peak Gr.: 6.44 mmHg LVOT Max P.16 mmHg LVOT Max V: 0.89 m/s CAROLYN Vmax: 2.47 cm2 Mitral Valve [facility] [address] [place] [address] 2 D/M-MODE ECHOCARDIOGRAM Name: QUE CHRISTIANSON MAKAYLA Room #: 217-P [facility] IN .R.#: [id number] Admission: 04/08/19 Attend Phys: Swapnil Thomas MD Discharge: Date of : 40 Report #: [id number] E/A Ratio: 0.7 MV Decel. Time: 353.45 ms MV E Max Thee.: 0.80 m/s MV A Thee.: 1.17 m/s MV PHT: 102.50 ms IVRT: 221.45 ms Pulmonary Valve PV Peak Thee.: 1.01 m/s PV Peak Gr.: 4.08 mmHg Pulmonary Vein P Vein S: 0.61 m/s P Vein A: 0.21 m/s P Vein D: 0.39 m/s P Vein A Dur.: 92.3 msec P Vein S/D Ratio: 1.56 Tricuspid Valve TR Peak Thee.: 2.52 m/s TR Peak Gr.: 25.33 mmHg PA Pressure: 30.00 mmHg Left Ventricle The left ventricle is normal size. There is normal LV segmental wall motion. There is normal left ventricular wall thickness. The left ventricular systolic function is normal. The left ventricular ejection fraction is within the normal range. LVEF is >55%. Grade I - abnormal relaxation pattern. Right Ventricle The right ventricle is normal size. The right ventricular systolic function is normal. Atria The left atrium size is normal. Right atrium is at the upper limits of normal. Aortic Valve The aortic valve is normal in structure. Trace to mild aortic regurgitation. There is no aortic valvular stenosis. Mitral Valve The mitral valve is normal in structure. Trace to mild mitral regurgitation. No evidence of mitral valve stenosis. Tricuspid Valve The tricuspid valve is normal in structure. There is mild tricuspid regurgitation. Estimated PAP 30 mmHg. There is no pulmonary [facility] [address] [place] [address] 2 D/M-MODE ECHOCARDIOGRAM Name: QUE CHRISTIANSON Room #: 217-P [facility] IN .R.#: [id number] Admission: 04/08/19 Attend Phys: Swapnil Thomas MD Discharge: Date of : 40 Report #: [id number] hypertension. Pulmonic Valve The pulmonary valve is normal in structure. Trace pulmonic regurgitation. Great Vessels The aortic root is normal in size. IVC is normal in size and collapses >50% with inspiration. Pericardium There is no pericardial effusion. <Conclusion> The left ventricle is normal size. LVEF is >55%. The aortic valve is normal in structure. Trace to mild aortic regurgitation. The mitral valve is normal in structure. Trace to mild mitral regurgitation. The tricuspid valve is normal in structure. There is mild tricuspid regurgitation. Estimated PAP 30 mmHg. There is no pulmonary hypertension. The pulmonary valve is normal in structure. Trace pulmonic regurgitation. There is no pericardial effusion. <ELECTRONICALLY SIGNED> By: Mahamed Salazar MD 04/09/19 1306 1306 1306 Mahamed Salazar MD /INF
--- NOTE | 2019-04-09 15:57 | NUR ---
Met with patient who has dementia. Sp with Bouchra moyer granddtr. patient resides in home with and brother in law. Patient uses a wc in home. He has medicaid caregivers 7 days a week for 7 hours a day. Caregivers for both patient and his . In evening GLENNA able to assist brother and to bed. Dicussed with Bouchra therapy recommends home with HH care. Left HH list in room for her to review.
[2019-04-09 18:32] VITALS: BP 142/64
[2019-04-09 19:42] VITALS: BP 152/54
--- NOTE | 2019-04-09 20:15 | NUR ---
ASSUMMED PT CARE AT APPROXIMATELY 0700. PT AWAKE AND ORIENTED TO SELF. PT C HX OF DEMENTIA. FREQUENT REORIENTATION PROVIDED. ASSESSMENT CHARTED. FALL PRECAUTIONS IN PLACE. PT DENIES HAVING CHEST PAIN. PT DENIES HAVING SOB. PT DENIES HAVING ACUTE PAIN. PT AND PT'S FAMILY EDUCATED ABOUT POC. PT AND PT'S FAMILY STATED UNDERSTANDING AND DENIED HAVING FURTHER QUESTIONS. VITAL SIGNS STABLE. BLOOD SUGARS STABLE. PT HAD LOOSE STOOLS X2. PT UP TO CHAIR THROUGHOUT SHIFT. ENCOURAGED PT TO EAT AND DRINK LIQUIDS. PT COMFORTABLE IN BED. PT DENIES HAVING FURTHER CONCERNS.
[2019-04-10 04:33] VITALS: BP 147/67
[2019-04-10 05:18] LABS: CALCIUM 8.5 mg/dL (8.5-10.1); CREATININE 0.9 mg/dL (0.7-1.3); MAGNESIUM 1.6 mg/dL (1.8-2.4); POTASSIUM 3.5 mmol/L (3.5-5.1)
[2019-04-10 05:39] LABS: HEMATOCRIT 30.7 % (42.0-52.0); HEMOGLOBIN 9.8 gm/dL (14.0-18.0); MCH 25.2 pg (26.0-34.0); MCV 78.9 fL (80.0-100.0); RBC 3.89 mil/uL (4.50-6.00); RDW 14.8 % (10.5-14.5); WBC 3.7 thou/uL (4.0-11.0)
--- NOTE | 2019-04-10 07:49 | NUR ---
PATIENTS CARE WAS ASSUMED AT SHIFT CHANGE. PATIENT WAS ASSESSED AND MEDS ERE PASSED. PATIENT HAD ONE LINEN CHANGE THIS SHIFT. HOURLY ROUNDING WAS DONE. THE BED IS IN A LOW AND LOCKED POSITION. THE BED ALARM IS ON
[2019-04-10 08:00] VITALS: BP 133/53
[2019-04-10 11:30] VITALS: BP 107/64
[2019-04-10 11:52] VITALS: BP 133/53
[2019-04-10] MEDS ORDERED: VITAMIN B-121000 MC2 SUBLING ×2 (12:20→17:14)
--- NOTE | 2019-04-10 12:58 | NUR ---
Pt is dcing home today with hh orders. Pt's gdtr indicates they perfer [facility] as they have had [facility] in the past. Dc communications planner to fax orders and confirm with [facility]. Family to transport him home this afternoon. Care team updated.
[2019-04-10 13:00] VITALS: BP 133/53
--- NOTE | 2019-04-10 14:02 | NUR ---
[facility] SPOKE WITH YURIDIA IN INTAKE SHE RECEIVED REFERRAL AND CAN ACCEPT.
--- NOTE | 2019-04-10 16:37 | NUR ---
ASSUMED CARE 0700, VITAL SIGNS STABLE, DENIES SOB, DENIES PAIN, NSR WITH TELE RATE IN THE MID 60'S, COMPLIANT WITH CARES, INCONTINENT OF BLADDER NO BM NOTED AT THIS TIME. POOR NUTRITIONAL INTAKE LESS THEN 50% OF AM AND NOON MEAL. FLUIDS ENCOURAGED. MAG REPLACED PER ORDERS. DC HOME WITH HOME HEALTH. IV AND TELE REMOVED. FAMILY ARE THE PRIM CAREGIVERS
[2019-04-10] MEDS ORDERED: GLUCOPHAGE1000 MG PO (17:14)
--- NOTE | 2019-04-14 11:46 | EEG ---
[facility] [place] [address] ELECTROENCEPHALOGRAM Name: QUE CHRISTIANSON Room #: 217-P [facility] IN M.R.#: [id number] Admission: 04/08/19 Attend Phys: Swapnil Thomas MD Discharge: 04/10/19 Date of : 40 Report #: [id number] THIS REPORT FOR: //name// CC: NIMA physician/PCP Swapnil Thomas DATE OF SERVICE: 04/10/2019 This patient is being evaluated for altered mental status and syncope. EEG was done by placing the electrode by standard 10-20 system of electrode placement. Both referential and sequential montages were used for recording. Background activity does go up to about 8-9 Hz, but it is intermixed with theta range slowing on both sides. The patient went to sleep that is associated with bilateral slowing and vertex sharp waves. Throughout the record, no active epileptiform activity was noticed. IMPRESSION: This patient's EEG does not demonstrate any active epileptiform activity. EEG does indicate intermixed slowing on both sides. That is a nonspecific abnormality, which can occur with dementia, encephalopathy, effect of psychotropic medication, etc. Clinical correlation is recommended. <ELECTRONICALLY SIGNED> By: Alok Dwyer MD 04/14/19 1146 1115 1133 Alok Dwyer MD /nt
== END 2019-04-10 17:05 | disposition home health service (06) | DRG 308 ==
LOC: ER 11:26 → EROBS 15:40 → 2N 15:40 → EROBS 15:55 → 2N 16:02
PROVIDERS: Internal Medicine; Nurse Practitioner Family; ADMIT Internal Medicine
PROC: 5A09357 Assistance with Respiratory Ventilation, Less than 24 Consecutive Hours, Continuous Positive Airway Pressure (ICD-10-PCS; principal; 2019-04-08)
DX: R00.1 Bradycardia, unspecified (principal); E43 Unspecified severe protein-calorie malnutrition; H54.3 Unqualified visual loss, both eyes; E11.9 Type 2 diabetes mellitus without complications; G30.9 Alzheimer's disease, unspecified; F02.80 Dementia in other diseases classified elsewhere, unspecified severity, without behavioral disturbance, psychotic disturbance, mood disturbance, and anxiety; I10 Essential (primary) hypertension; I25.10 Atherosclerotic heart disease of native coronary artery without angina pectoris; E78.5 Hyperlipidemia, unspecified; D64.9 Anemia, unspecified; T44.7X5A Adverse effect of beta-adrenoreceptor antagonists, initial encounter; Z86.73 Personal history of transient ischemic attack (TIA), and cerebral infarction without residual deficits; Z87.891 Personal history of nicotine dependence; Z95.1 Presence of aortocoronary bypass graft; Y92.89 Other specified places as the place of occurrence of the external cause
CPT/HCPCS: 10081

== ENCOUNTER 2019-07-23 15:12 | Emergency (ER) | payer OTHER ==
[~2019-07-23] VITALS: Ht 185.4 cm; Wt 68.0 kg
[~2019-07-23 15:12] MED LIST changes: +VITAMIN B-121000 MC2 SUBLING
[2019-07-23 15:34] LABS: URINE BILIRUBIN NEGATIVE (Negative); URINE BLOOD NEGATIVE (Negative); URINE CLARITY CLEAR; URINE COLOR YELLOW; URINE GLUCOSE-RANDOM* 3+ (Negative); URINE KETONES NEGATIVE (Negative); URINE LEUKOCYTES-REFLEX NEGATIVE (Negative); URINE NITRITE-REFLEX NEGATIVE (Negative); URINE PROTEIN (DIPSTICK) NEGATIVE (Negative); URINE UROBILINOGEN 0.2 E.U./dl (0.2-1.0)
--- NOTE | 2019-07-23 15:38 | EKG ---
[facility] [place] [address] ELECTROCARDIOGRAM REPORT Name: QUE CHRISTIANSON Room #: PRE [facility]..#: [id number] Admission: Attend Phys: Discharge: Date of : 40 Report #: [id number] THIS REPORT FOR: cc: NIMA - Ashleigh family physician/PCP NIMA - No family physician/PCP Ricci Walters MD ~ THIS REPORT FOR: //name// [facility] ED Test Date: 2019-07-23 Test Time: 15:21:13 Pat Name: QUE CHRISTIANSON Department: Room: Gender: M Medicaid Eligibility Specialist: LALITHA : 1940 Requested By: Sulaiman Sandoval Order Number: [id number] MD: Ricci Walters Measurements Intervals [place] Rate: 74 P: 25 RI: 165 QRS: 48 QRSD: 84 T: 32 QT: 402 QTc: 446 Interpretive Statements Sinus rhythm Compared to ECG 04/08/2019 11:28:08 Left ventricular hypertrophy no longer present Electronically Signed On 07-23-2019 15:36:34 CDT by Ricci Walters [email or web address] <ELECTRONICALLY SIGNED> By: Ricci Walters MD 07/23/19 1536 1521 152 Ricci Walters MD /LENNY
[2019-07-23 15:56] LABS: ABSOLUTE NEUTROPHILS 3.3 thou/uL (1.4-8.2); BASOPHILS 1.2 % (0.0-2.0); EOSINOPHILS 2.3 % (0.0-3.0); HEMATOCRIT 34.4 % (42.0-52.0); HEMOGLOBIN 11.2 gm/dL (14.0-18.0); LYMPHOCYTES 22.7 % (24.0-44.0); MCH 25.6 pg (26.0-34.0); MCHC 32.5 g/dL (28.0-37.0); MCV 78.9 fL (80.0-100.0); MONOCYTES 9.4 % (1.0-8.0); PLATELET COUNT 312 thou/uL (150-400); POLYS 64.4 % (36.0-66.0); RBC 4.36 mil/uL (4.50-6.00); WBC 5.1 thou/uL (4.0-11.0)
[2019-07-23 16:04] LABS: ANION GAP 5 mmol/L (7-16); BUN 18 mg/dL (7-18); CALCIUM 8.2 mg/dL (8.5-10.1); CHLORIDE 105 mmol/L (98-107); CO2 30 mmol/L (21-32); CREATININE 1.3 mg/dL (0.7-1.3); GLUCOSE 418 mg/dL (74-106); POTASSIUM 4.2 mmol/L (3.5-5.1); SODIUM 140 mmol/L (136-145)
[2019-07-23 16:13] LABS: ALBUMIN 2.7 g/dL (3.4-5.0); LIPASE 162 U/L (73-393); SGOT 8 U/L (15-37); SGPT 16 U/L (30-65); TOTAL BILIRUBIN 0.2 mg/dL (<0.1-1.0); TOTAL PROTEIN 6.2 g/dL (6.4-8.2); TROPONIN-I <0.06 ng/mL (<0.06)
[2019-07-23 18:06] VITALS: BP 140/62
== END 2019-07-23 18:06 | disposition home or self-care (01) ==
LOC: ER 15:12
PROVIDERS: Emergency Medicine
DX: R53.1 Weakness (principal); R41.82 Altered mental status, unspecified; E11.9 Type 2 diabetes mellitus without complications; I10 Essential (primary) hypertension; F17.210 Nicotine dependence, cigarettes, uncomplicated; G30.9 Alzheimer's disease, unspecified; F02.80 Dementia in other diseases classified elsewhere, unspecified severity, without behavioral disturbance, psychotic disturbance, mood disturbance, and anxiety; Z79.899 Other long term (current) drug therapy; Z86.73 Personal history of transient ischemic attack (TIA), and cerebral infarction without residual deficits

== ENCOUNTER 2020-05-19 12:55 | Emergency (ER) | payer OTHER ==
[~2020-05-19] VITALS: Ht 170.2 cm; Wt 63.5 kg
[2020-05-19 14:42] LABS: ABSOLUTE NEUTROPHILS 2.4 thou/uL (1.4-8.2); BASOPHILS 1.1 % (0.0-2.0); EOSINOPHILS 3.5 % (0.0-3.0); HEMATOCRIT 37.5 % (42.0-52.0); HEMOGLOBIN 11.3 gm/dL (14.0-18.0); LYMPHOCYTES 35.5 % (24.0-44.0); MCH 25.4 pg (26.0-34.0); MCHC 30.2 g/dL (28.0-37.0); PLATELET COUNT 304 thou/uL (150-400); POLYS 48.9 % (36.0-66.0); RBC 4.46 mil/uL (4.50-6.00); RDW 18.3 % (10.5-14.5); WBC 4.8 thou/uL (4.0-11.0)
[2020-05-19 14:49] LABS: ANION GAP 7 mmol/L (7-16); BUN 26 mg/dL (7-18); CALCIUM 8.9 mg/dL (8.5-10.1); CHLORIDE 109 mmol/L (98-107); CO2 27 mmol/L (21-32); CREATININE 1.5 mg/dL (0.7-1.3); GLUCOSE 181 mg/dL (74-106); POTASSIUM 4.7 mmol/L (3.5-5.1); SODIUM 143 mmol/L (136-145); URINE BILIRUBIN NEGATIVE (Negative); URINE BLOOD TRACE (Negative); URINE CLARITY CLEAR; URINE COLOR YELLOW; URINE GLUCOSE-RANDOM* NEGATIVE (Negative); URINE KETONES NEGATIVE (Negative); URINE LEUKOCYTES-REFLEX TRACE (Negative); URINE NITRITE-REFLEX NEGATIVE (Negative); URINE PROTEIN (DIPSTICK) NEGATIVE (Negative); URINE SPECIFIC GRAVITY >= 1.030 (1.005-1.035); URINE UROBILINOGEN 0.2 E.U./dl (0.2-1.0)
--- NOTE | 2020-05-19 14:54 | EKG ---
[place] [address] [facility] [place] [address] ELECTROCARDIOGRAM REPORT Name: QUE CHRISTIANSON Room #: REG RAFAEL Alfaro#: [id number] Admission: 05/19/20 Attend Phys: Discharge: Date of : 40 Report #: [id number] [facility] ED Test Date: 2020-05-19 Test Time: 13:39:39 Pat Name: QUE CHRISTIANSON Department: Room: Gender: M Patrol Conductor: : 1940 Requested By: Juli Jones Order Number: [id number] MD: Conrad Vega Measurements Intervals [place] Rate: 65 P: 10 WI: 173 QRS: 46 QRSD: 82 T: 88 QT: 451 QTc: 469 Interpretive Statements Sinus rhythm Nonspecific T abnormalities, lateral leads Compared to ECG 07/23/2019 15:21:13 T-wave abnormality now present Electronically Signed On 05-19-2020 14:54:33 MERCHANDISING COORDINATOR by Conrad Vega [email or web address] <ELECTRONICALLY SIGNED> By: Conrad Vega MD, [facility] 05/19/20 1454 1339 1339 Conrad Vega MD, FACC /EPI
[2020-05-19 14:59] LABS: ALBUMIN 2.6 g/dL (3.4-5.0); SGOT 11 U/L (15-37); SGPT 13 U/L (16-63); TOTAL BILIRUBIN 0.2 mg/dL (0.2-1.0); TOTAL PROTEIN 5.8 g/dL (6.4-8.2); TROPONIN-I <0.06 ng/mL (<0.06)
[2020-05-19 16:18] VITALS: BP 123/60
[2020-05-19 23:43] LABS: ANISOCYTOSIS 2+
== END 2020-05-19 16:33 | disposition home or self-care (01) ==
LOC: ER 12:55
PROVIDERS: Emergency Medicine
DX: E86.0 Dehydration (principal); R06.00 Dyspnea, unspecified; I10 Essential (primary) hypertension; E11.9 Type 2 diabetes mellitus without complications; Z79.01 Long term (current) use of anticoagulants; Z79.899 Other long term (current) drug therapy; Z87.891 Personal history of nicotine dependence

== ENCOUNTER 2020-08-14 09:56 | Inpatient (IN) | payer OTHER ==
[~2020-08-14] VITALS: Ht 185.4 cm; Wt 79.4 kg
[2020-08-14 09:56] VITALS: BP 151/55
[2020-08-14 12:03] LABS: ABSOLUTE NEUTROPHILS 2.9 thou/uL (1.4-8.2); ANION GAP 10 mmol/L (7-16); BUN 17 mg/dL (7-18); CALCIUM 9.1 mg/dL (8.5-10.1); CHLORIDE 108 mmol/L (98-107); CO2 30 mmol/L (21-32); CREATININE 0.8 mg/dL (0.7-1.3); EOSINOPHILS 2.4 % (0.0-3.0); GLUCOSE 182 mg/dL (74-106); HEMATOCRIT 32.2 % (42.0-52.0); HEMOGLOBIN 10.3 gm/dL (14.0-18.0); LYMPHOCYTES 29.9 % (24.0-44.0); MCH 25.8 pg (26.0-34.0); MCHC 31.9 g/dL (28.0-37.0); MCV 80.9 fL (80.0-100.0); MONOCYTES 9.8 % (1.0-8.0); PLATELET COUNT 391 thou/uL (150-400); POLYS 56.9 % (36.0-66.0); POTASSIUM 4.4 mmol/L (3.5-5.1); RBC 3.99 mil/uL (4.50-6.00); SODIUM 148 mmol/L (136-145)
[2020-08-14 12:12] LABS: ALBUMIN 2.4 g/dL (3.4-5.0); SGOT 10 U/L (15-37); SGPT 15 U/L (16-63); TOTAL BILIRUBIN 0.2 mg/dL (0.2-1.0); TOTAL PROTEIN 6.7 g/dL (6.4-8.2); TROPONIN-I <0.06 ng/mL (<0.06)
[2020-08-14 14:08] LABS: URINE BILIRUBIN NEGATIVE (Negative); URINE BLOOD 3+ (Negative); URINE CLARITY CLEAR; URINE COLOR YELLOW; URINE GLUCOSE-RANDOM* TRACE (Negative); URINE KETONES NEGATIVE (Negative); URINE LEUKOCYTES-REFLEX NEGATIVE (Negative); URINE NITRITE-REFLEX NEGATIVE (Negative); URINE PROTEIN (DIPSTICK) 2+ (Negative); URINE SPECIFIC GRAVITY >= 1.030 (1.005-1.035)
[2020-08-14 14:16] LABS: WBC CLUMPS Few (None Seen)
[2020-08-14 14:17] LABS: URINE RBC >20 Many /HPF (NONE SEEN)
[2020-08-14 14:19] LABS: SQUAMOUS 4-10 Moderate /LPF (0-3); YEAST-REFLEX Present (None Seen)
[2020-08-14 14:20] LABS: CASTS None Seen /LPF (None Seen); CRYSTALS None Seen /LPF (None Seen)
[2020-08-14 16:33] VITALS: BP 147/74
[2020-08-14 16:57] VITALS: BP 119/51
[2020-08-14 17:18] LABS: ALBUMIN 2.5 g/dL (3.4-5.0); TOTAL PROTEIN 6.6 g/dL (6.4-8.2)
[2020-08-14 20:14] VITALS: BP 129/61
[2020-08-15 07:22] VITALS: BP 137/58
[2020-08-15 10:36] LABS: HEMATOCRIT 30.7 % (42.0-52.0); HEMOGLOBIN 9.9 gm/dL (14.0-18.0); MCH 26.1 pg (26.0-34.0); MCHC 32.4 g/dL (28.0-37.0); MCV 80.5 fL (80.0-100.0); RBC 3.81 mil/uL (4.50-6.00); RDW 13.8 % (10.5-14.5); WBC 4.6 thou/uL (4.0-11.0)
[2020-08-15 10:44] LABS: CALCIUM 8.8 mg/dL (8.5-10.1); CREATININE 0.9 mg/dL (0.7-1.3); MAGNESIUM 1.7 mg/dL (1.8-2.4)
[2020-08-15 15:57] VITALS: BP 154/58
[2020-08-15 19:14] VITALS: BP 147/61
[2020-08-15 20:30] VITALS: BP 147/61
[2020-08-16 05:18] LABS: HEMATOCRIT 29.1 % (42.0-52.0); HEMOGLOBIN 9.6 gm/dL (14.0-18.0); MCH 26.4 pg (26.0-34.0); MCV 80.2 fL (80.0-100.0); RBC 3.63 mil/uL (4.50-6.00); RDW 14.3 % (10.5-14.5); WBC 3.6 thou/uL (4.0-11.0)
[2020-08-16 05:35] LABS: CALCIUM 8.4 mg/dL (8.5-10.1); CREATININE 0.8 mg/dL (0.7-1.3); MAGNESIUM 1.9 mg/dL (1.8-2.4); POTASSIUM 3.9 mmol/L (3.5-5.1)
[2020-08-16 07:57] VITALS: BP 125/56
[2020-08-16 07:59] VITALS: BP 140/63
[2020-08-16 08:02] VITALS: BP 125/56
--- NOTE | 2020-08-16 08:30 | EKG ---
[address] [address] ELECTROCARDIOGRAM REPORT Name: QUE CHRISTIANSON Room #: 452-P ADM IN M.R.#: [id number] Admission: 08/14/20 Attend Phys: Eulogio Conroy MD Discharge: Date of : 40 Report #: [id number] [facility] ED Test Date: 2020-08-14 Test Time: 10:19:29 Pat Name: QUE CHRISTIANSON Department: Room: [facility] Gender: M Gripper Installer: JCHAIBARBARA : 1940 Requested By: Juli Jones Order Number: [id number] MD: Pablo King Measurements Intervals [place] Rate: 75 P: 32 ND: 149 QRS: 65 QRSD: 85 T: 66 QT: 401 QTc: 448 Interpretive Statements Sinus rhythm Left ventricular hypertrophy Compared to ECG 05/19/2020 13:39:39 No significant change was found Electronically Signed On 08-16-2020 8:30:13 CDT by Pablo King [email or web address] <ELECTRONICALLY SIGNED> By: Pablo King MD, [facility] 08/16/20 0830 1019 1019 Pablo King MD, FACC /EPI
[2020-08-16 15:15] VITALS: BP 126/47
[2020-08-16 19:32] VITALS: BP 147/76
[2020-08-17 08:01] VITALS: BP 130/58
[2020-08-17 16:16] VITALS: BP 142/63
[2020-08-17 20:46] VITALS: BP 154/71
[2020-08-18 07:45] VITALS: BP 131/46
[2020-08-18 19:53] VITALS: BP 134/52
[2020-08-19 07:30] VITALS: BP 135/55
[2020-08-19] MEDS ORDERED: IRON325 PO (15:41)
[2020-08-19] MEDS ORDERED: COLACE100 MG PO (15:42)
== END 2020-08-19 17:16 | DRG 640 ==
LOC: ER 09:56 → 4W 16:23 → EROBS 16:23 → 4W 17:25
PROVIDERS: Emergency Medicine; ADMIT Internal Medicine; ATTEND Internal Medicine
DX: E87.0 Hyperosmolality and hypernatremia (principal); E43 Unspecified severe protein-calorie malnutrition; N39.0 Urinary tract infection, site not specified; E86.0 Dehydration; D64.9 Anemia, unspecified; Z20.822 Contact with and (suspected) exposure to COVID-19; H54.8 Legal blindness, as defined in USA; E11.9 Type 2 diabetes mellitus without complications; I10 Essential (primary) hypertension; R31.9 Hematuria, unspecified; M54.40 Lumbago with sciatica, unspecified side; G30.9 Alzheimer's disease, unspecified; R53.81 Other malaise; F02.80 Dementia in other diseases classified elsewhere, unspecified severity, without behavioral disturbance, psychotic disturbance, mood disturbance, and anxiety; Z86.73 Personal history of transient ischemic attack (TIA), and cerebral infarction without residual deficits; Z87.891 Personal history of nicotine dependence; Z68.23 Body mass index [BMI] 23.0-23.9, adult; Z79.899 Other long term (current) drug therapy
CPT/HCPCS: 10040

== ENCOUNTER 2020-09-14 11:39 | Inpatient (IN) | payer OTHER ==
[~2020-09-14] VITALS: Ht 185.4 cm; Wt 71.0 kg
[~2020-09-14 11:39] MED LIST changes: -ACETAMINOPHEN325 M1 PO; -AUGMENTIN 875-1 EACH PO; -BAYER CHEWABLE81 MG PO; -DEKAS PLUS SOF1 EACH PO; -GLUCOPHAGE500 MG PO; -MIRALAX119 GM PO; -PEPCID20 MG PO; -PERCOCET 10-321 EAC1 PO; -PRO-STAT AWC LI30 ML PO; -VITAMIN D310 MC4 PO
[2020-09-14 12:25] VITALS: BP 124/42
[2020-09-14 14:30] LABS: ABSOLUTE NEUTROPHILS 3.6 thou/uL (1.4-8.2); EOSINOPHILS 4.8 % (0.0-3.0); HEMATOCRIT 32.6 % (42.0-52.0); HEMOGLOBIN 10.2 gm/dL (14.0-18.0); LYMPHOCYTES 27.9 % (24.0-44.0); MCH 25.4 pg (26.0-34.0); MCHC 31.3 g/dL (28.0-37.0); MCV 81.1 fL (80.0-100.0); MONOCYTES 9.6 % (1.0-8.0); PLATELET COUNT 375 thou/uL (150-400); POLYS 56.7 % (36.0-66.0); RBC 4.02 mil/uL (4.50-6.00); RDW 15.3 % (10.5-14.5); WBC 6.4 thou/uL (4.0-11.0)
[2020-09-14 14:38] LABS: ALBUMIN 2.2 g/dL (3.4-5.0); CALCIUM 8.8 mg/dL (8.5-10.1); MAGNESIUM 1.8 mg/dL (1.8-2.4); POTASSIUM 4.8 mmol/L (3.5-5.1); TOTAL BILIRUBIN 0.1 mg/dL (0.2-1.0); TOTAL PROTEIN 6.7 g/dL (6.4-8.2)
[2020-09-14 14:53] LABS: APTT 22.7 Seconds (24.5-32.8); INR 0.9; PROTIME 9.6 Seconds (9.3-11.4)
[2020-09-14 17:20] VITALS: BP 121/56
[2020-09-14] MEDS ORDERED: VITAMIN D310 MC4 PO (17:58)
[2020-09-14] MEDS ORDERED: MIRALAX119 GM PO (18:00)
[2020-09-14] MEDS ORDERED: PERCOCET 10-321 EAC1 PO (18:01)
[2020-09-14] MEDS ORDERED: DEKAS PLUS SOF1 EACH PO (18:01)
[2020-09-14] MEDS ORDERED: PRO-STAT AWC LI30 ML PO (18:09)
[2020-09-14 20:18] VITALS: BP 119/53
[2020-09-15 05:03] VITALS: BP 135/54
--- NOTE | 2020-09-15 07:24 | NUR ---
Pt. has slept well during the night. Able to state name ,b day and he's at the hospital. He has been calm and cooperative. Explained procedure to pt. prior to performing since he is legally blind and he responded well. C/O feet hurting this am , morphine given with good result. Incontinent of bladder , total bed change done x2 then external cath placed. Heel protector in place. Bed alarm on for safety.
[2020-09-15 09:14] VITALS: BP 172/72
--- NOTE | 2020-09-15 12:17 | NUR ---
FAXED CLINICAL UPDATES TO [facility]. WILL CONFIRM WITH JESUS/ LIAISON THAT THEY RECEIVED. [facility] P [phone]; FAX [phone]
--- NOTE | 2020-09-15 15:09 | NUR ---
Chart reviewed and case discussed with the care team. Pt down for angio this afternoon and then transfer to CCU tele. The pt is from manager terminal care at [facility] and has lived there since 2018. He is up to a w/c but requires assistance with all of his adl's. He is confused per staff and requires redirection. Pt's jessica Shook works her in RT and has spoken with the attending. Lynda liason to f/u with family d/t care concerns. [facility] and can accept him for readmission when medically ready. Awaiting podiatry imput regarding his 2nd/3rd rt toes. The dc media planner will fax an update to the retirement. The facility does not have a dpoa on file. Cm to followup with family regarding his return to the facility pending his plan of care.
[2020-09-15 18:10] VITALS: BP 112/50
--- NOTE | 2020-09-15 18:45 | NUR ---
ASSUMED CARE OF PT AROUND 1430. PT ARRIVED FROM THE PLASTERER TENDER. LEFT GROIN SOFT C/D/I. PT ALERT TO SELF ONLY. VSS, IVF INFUSING PER ORDER. PT DENIES PAIN/SOA. PT DAUGHTER AT BEDSIDE. WILL CONTINUE TO MONITOR.
[2020-09-15 19:42] VITALS: BP 152/73
[2020-09-16 03:36] VITALS: BP 131/50
--- NOTE | 2020-09-16 06:53 | NUR ---
ASSUME CARE 1900. PT/VITALS STABLE. A/O TO PERSON ONLY BUT VERY PLEASANT AND EASILY REDIRECTED. SR ON MONITOR. NO DISTRESS NOTED THROUGH THE SHIFT. INCONTINENT OF BOWEL AND BLADDER WITH ADEQUATE URINE OUTPUT NOTED. INTERMITTENT BACK/ RIGHT EXTREMITY PAIN WITH RELIEF FROM PAIN MEDICATION. ASSESSMENT CHARTED. PROGRESSING WELL WITH POC. PLAN IS TO CONTINUE TO MONITOR/MANGE INFECTION AND WILL FOLLOW UP OUTPATIENT FOR LEFT LEG ARTERIAL COMPROMISE MANAGEMENT. WILL CONTINUE TO MONITOR AND FOLLOW WITH POC
[2020-09-16 07:36] VITALS: BP 147/69
[2020-09-16 10:03] LABS: HEMATOCRIT 28.8 % (42.0-52.0); HEMOGLOBIN 9.3 gm/dL (14.0-18.0); MCH 25.9 pg (26.0-34.0); MCHC 32.1 g/dL (28.0-37.0); MCV 80.7 fL (80.0-100.0); RBC 3.57 mil/uL (4.50-6.00); WBC 4.3 thou/uL (4.0-11.0)
[2020-09-16 10:17] LABS: CALCIUM 8.4 mg/dL (8.5-10.1); POTASSIUM 4.3 mmol/L (3.5-5.1)
[2020-09-16 11:52] VITALS: BP 114/48
[2020-09-16 15:12] VITALS: BP 139/55
[2020-09-16 19:30] VITALS: BP 142/63
[2020-09-17 03:50] VITALS: BP 149/51
[2020-09-17 05:36] LABS: ALBUMIN 1.8 g/dL (3.4-5.0); CALCIUM 8.1 mg/dL (8.5-10.1); CREATININE 0.8 mg/dL (0.7-1.3); PHOSPHORUS 3.3 mg/dL (2.5-4.9); POTASSIUM 3.7 mmol/L (3.5-5.1)
--- NOTE | 2020-09-17 06:31 | NUR ---
ASSESSMENT: PT REMAIN ALERT AND ORIENT TIMES ONE. PLEASANT, COOPERATIVE AND CALM FOR THE MOST PART UNTIL TIME FOR A NEW IV START. HAD A SMALL BM THIS SHIFT. DENIES PAIN BUT STATE THAT HE WOULD LET THIS RN KNOW WHEN OR IF HE NEEDED PAIN RELIEF. TURNED EVERY 2 HOURS, NO NEW SKIN ISSUES. SR/PAC'S PER MONITOR. SLEPT A FEW HOURS DURING THE NOC. POOR PROGRESS TOWARDS DS GOAL. WILL CONTINUE TO MONITOR.
[2020-09-17 08:41] VITALS: BP 138/45
[2020-09-17] MEDS ORDERED: AUGMENTIN 875-1 EACH PO (12:57)
[2020-09-17] MEDS ORDERED: ACETAMINOPHEN325 M1 PO (12:57)
[2020-09-17] MEDS ORDERED: PEPCID20 MG PO (12:57)
[2020-09-17] MEDS ORDERED: BAYER CHEWABLE81 MG PO (12:57)
[2020-09-17] MEDS ORDERED: GLUCOPHAGE500 MG PO (12:57)
--- NOTE | 2020-09-17 13:51 | NUR ---
FAXED DISCHARGE ODERS AND SUMMARY TO [facility]. WILL CONFIRM WITH JESUS/LIAISON THAT THEY RECEIVED. [facility] P [phone]; FAX [phone]; JESUS Alvarez [phone]
--- NOTE | 2020-09-17 14:41 | NUR ---
Pt dcing back to ltc are Tashi Eller this afternoon. They have arranged a stretcher van at 3-4pm and will get his w/c at the same time. Gdtr/teddy Shook updated. Encouraged her to call the socialworker at the facility to coordinate family mtg for his next care plan review. The DON will order podiatry services at the facility. Gdtr may try to take him to a college tutor as an outpt pending when their college tutor will see him. Orders faxed per the dc meeting planner and nursing to call report. Chart copy to be sent with the pt. Case closed.
--- NOTE | 2020-09-17 15:57 | NUR ---
assessment as charted - meds as per may - dayan diet and fluids, - pt requiring to be feed - ate well. no co's of pain or nausea. meds as per mar - toed care tended to on r foot. pt transfered back to the senior care this afternoon, report called - left unit via stretcher van
--- NOTE | 2020-09-21 17:09 | HC ---
[facility] [place] [address] CONSULTATION Name: QUE CHRISTIANSON Room #: 212-P [facility] IN M.R.#: [id number] Admission: 09/14/20 Attend Phys: Swapnil Thomas MD Discharge: 09/17/20 Date of : 40 Report #: [id number] THIS REPORT FOR: cc: Sasha Terrell Beth RNP Althoff, Jeffrey R. MD ~ DOC #: [id number] Bonifacio Chin MD DATE OF SERVICE: 09/14/2020 CHIEF COMPLAINT: Necrotic second and third toes. HISTORY OF PRESENT ILLNESS: This is an 80-year-old male patient, lives at [facility], was noted to have necrosis to the second and third toes of the right foot. He has been seen by Interventional Radiology, he was felt to need an angiogram. I have been asked to see him with regard to wound care. The patient can provide no information about himself due to advanced dementia. He is a little bit combative, but mostly somnolent. PAST MEDICAL HISTORY: Positive for cerebrovascular accident, coronary artery disease, glaucoma, type 2 diabetes mellitus, Alzheimer's type dementia, hypertension, anxiety, sarcopenia. SOCIAL HISTORY: Negative for alcohol or tobacco use. He is living in a nursing care facility. MEDICATIONS: Include donepezil, timolol, Flomax, ferrous sulfate, Plavix, vitamin B12, Glucophage, Depakote. ALLERGIES: No known drug allergies. FAMILY HISTORY: Unobtainable. REVIEW OF SYSTEMS: Unobtainable due to the patient's advanced dementia. PHYSICAL EXAMINATION: VITAL SIGNS: At this time include temperature is 36.4, pulse 84, respiratory rate of 18, blood pressure 124/42. GENERAL: This is a chronically ill-appearing male. The patient appears to be mostly somnolent, although is combative sometimes during his exam. HEAD: Normocephalic. NECK: Supple. LUNGS: Diminished. HEART: Irregular. ABDOMEN: Soft. EXTREMITIES: Demonstrate diminished distal pulses. He has some dry gangrene [facility] [address] [place] [address] CONSULTATION Name: QUE CHRISTIANSON Room #: 212-P [facility] IN M.R.#: [id number] Admission: 09/14/20 Attend Phys: Swapnil Thomas MD Discharge: 09/17/20 Date of : 40 Report #: [id number] changes to the right second and third toes. There is still the appearance of some viable tissue beneath what appears to be superficial eschar. It is very difficult to determine the full thickness. NEUROLOGICAL: The patient is not able to answer any questions. He seems to move all 4 extremities spontaneously. LABORATORY STUDIES: Sodium 143, potassium 4.8, chloride 106, CO2 of 29. BUN 23. Glucose 244. Albumin is 2.2. White blood cell count 6.4 with a hemoglobin of 10.2. CLINICAL IMPRESSION: 1. 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 2. Severe peripheral vascular disease. 3. Advanced dementia. 4. Hypertension. 5. Type 2 diabetes mellitus. 6. Severe protein-calorie malnutrition, albumin 2.2. RECOMMENDATIONS: At this point in time, we will recommend Betadine paint to the second and third toes. He will have angiography tomorrow for likely percutaneous intervention. We will obtain a podiatry consultation as to a surgical opinion regarding the toes. At this point, Betadine paint to preserve the dry stable eschar. At this time continue with medical management and nutritional support as possible. I appreciate being asked to see him in consultation. MD MIL Jackson/HANNA/CRISTOBAL <ELECTRONICALLY SIGNED> By: Bonifacio Chin MD 09/21/20 1709 0701 0815 Bonifacio Chin MD /nt
== END 2020-09-17 15:14 | DRG 270 ==
LOC: 3W 11:39 → 2N 09-15 13:56
PROVIDERS: ADMIT Internal Medicine; ATTEND Internal Medicine
PROC: 04CK3ZZ Extirpation of Matter from Right Femoral Artery, Percutaneous Approach (ICD-10-PCS; principal; 2020-09-15)
PROC: B4101ZZ Fluoroscopy of Abdominal Aorta using Low Osmolar Contrast (ICD-10-PCS; principal; 2020-09-15)
PROC: 047K3DZ Dilation of Right Femoral Artery with Intraluminal Device, Percutaneous Approach (ICD-10-PCS; principal; 2020-09-15)
PROC: B4181ZZ Fluoroscopy of Bilateral Renal Arteries using Low Osmolar Contrast (ICD-10-PCS; principal; 2020-09-15)
DX: E11.52 Type 2 diabetes mellitus with diabetic peripheral angiopathy with gangrene (principal); E43 Unspecified severe protein-calorie malnutrition; I96 Gangrene, not elsewhere classified; I69.359 Hemiplegia and hemiparesis following cerebral infarction affecting unspecified side; F03.90 Unspecified dementia, unspecified severity, without behavioral disturbance, psychotic disturbance, mood disturbance, and anxiety; I25.10 Atherosclerotic heart disease of native coronary artery without angina pectoris; E11.9 Type 2 diabetes mellitus without complications; F10.21 Alcohol dependence, in remission; I10 Essential (primary) hypertension; F41.9 Anxiety disorder, unspecified; D63.8 Anemia in other chronic diseases classified elsewhere; R53.81 Other malaise; E78.5 Hyperlipidemia, unspecified; Z66 Do not resuscitate; D50.9 Iron deficiency anemia, unspecified; L03.031 Cellulitis of right toe; H54.8 Legal blindness, as defined in USA; S91.109A Unspecified open wound of unspecified toe(s) without damage to nail, initial encounter; X58.XXXA Exposure to other specified factors, initial encounter; Z95.1 Presence of aortocoronary bypass graft; Z68.20 Body mass index [BMI] 20.0-20.9, adult; Z79.82 Long term (current) use of aspirin; Z79.899 Other long term (current) drug therapy; Y93.89 Activity, other specified; Y92.89 Other specified places as the place of occurrence of the external cause; Y99.8 Other external cause status
CPT/HCPCS: 10081; 10779; 10879

== ENCOUNTER → 2020-09-14 | Outpatient (CLI) | payer OTHER ==
[~2020-09-14] MED LIST changes: +ACETAMINOPHEN325 M1 PO; +AUGMENTIN 875-1 EACH PO; +BAYER CHEWABLE81 MG PO; +COLACE100 MG PO; +DEKAS PLUS SOF1 EACH PO; +GLUCOPHAGE500 MG PO; +MIRALAX119 GM PO; +PEPCID20 MG PO; +PERCOCET 10-321 EAC1 PO; +PRO-STAT AWC LI30 ML PO; -TIMOLOL MA0.25 %/5 M; +TIMOLOL MA0.25 %/52 EA. EYE; +VITAMIN D310 MC4 PO
== END ==
LOC: SJCVCIMAG 09:50
PROVIDERS: ATTEND Nuclear Medicine Nuclear Cardiology
DX: I70.201 Unspecified atherosclerosis of native arteries of extremities, right leg (principal); L97.519 Non-pressure chronic ulcer of other part of right foot with unspecified severity; E11.51 Type 2 diabetes mellitus with diabetic peripheral angiopathy without gangrene; E78.00 Pure hypercholesterolemia, unspecified; I10 Essential (primary) hypertension; E78.5 Hyperlipidemia, unspecified; Z79.82 Long term (current) use of aspirin; Z79.84 Long term (current) use of oral hypoglycemic drugs; Z79.899 Other long term (current) drug therapy; Z86.718 Personal history of other venous thrombosis and embolism

== ENCOUNTER 2021-03-11 09:36 | Inpatient (IN) | payer OTHER ==
[~2021-03-11] VITALS: Ht 165.1 cm; Wt 64.4 kg
--- NOTE | ~2021-03-11 | EMS ---
[address] [address] EMS Patient Care Report Name: QUE CHRISTIANSON Room #: 359-P [facility] IN M.R.#: [id number] Admission: 03/11/21 Attend Phys: Sonido Gonzales MD Discharge: 03/15/21 Date of : 40 Report #: [id number] THIS REPORT FOR: //name// Report Transmitted: 03/18/2021 14:06 EMS Care Summary [facility] Incident [id number] @ 03/11/2021 08:46 Incident Location [address] [place] [address] Patient QUE CHRISTIANSON Male, 80 Years 1940 Patient Address [address] [address] Patient History Diabetes,Hypertension (HTN),Gastro-Esophageal Reflux Disease (GERD), Patient Allergies No known allergies, Patient Medications Donepezil, Aspirin, Famotidine, Cyanocobalamin Co57, Depakote, Metformin, Cholecalciferol, Clopidogrel, Doxycycline, Chief Complaint Hyperglycemia Disposition Transported No Lights/[place] Dispatch Reason Sick Person Transported To [facility] Narrative 80 YOM in [address] [facility] Alec being attended to by Arun Huynh. [place] staff reports that the patient has a blood glucose level of 466 mg/dl. L41 reports 268 mg/dl. [place] staff is unsure if insulin was given prior to EMS call. Patient is non [address] [address] EMS Patient Care Report Name: QUE CHRISTIANSON Room #: 359-P [facility] IN M.R.#: [id number] Admission: 03/11/21 Attend Phys: Sonido Gonzales MD Discharge: 03/15/21 Date of : 40 Report #: [id number] verbal and was alert to painful stimuli. An IV was started in patient room, patient pulled away from the IV stick. Report received form [place] staff and L41, patient was placed onto the stretcher and secured with straps for transport. Stretcher was loaded into ambulance and secured. All moves were done without incident. Patient was placed onto the ECG monitored with BP and pulse ox. NS fluids were given during transport with 150 ML delivered. A recheck of BG at time of arrival at hospital was 292 MG/DL. Verbal report was given to RN during patient care transfer for MD assessment. Initial Vitals @PTAP: 111,R: 16,BP: 112/79,Pain: 0/10,GCS: 6,Glucose: 268,SpO2: 97,Revised Trauma: 10,NE Suspected: false @09:17P: 107,R: 21,BP: 118/76,Pain: 0/10,GCS: 9,SpO2: 98,Revised Trauma: 11,NE Suspected: false @09:27P: 107,R: 17,BP: 109/71,Pain: 0/10,GCS: 9,Glucose: 292,SpO2: 97,Revised Trauma: 11,NE Suspected: false @09:03P: 107,R: 16,BP: 109/65,Pain: 0/10,GCS: 9,Temp: 97.9F,SpO2: 97,Revised Trauma: 11,NE Suspected: false Assessments @08:56MENTAL:Other,Person Oriented,SKIN:HEENT:Eyes: Left: Other,Eyes: Right: Other,Head/Face: No Abnormalities,Neck/Airway: No Abnormalities,LUNG SOUNDS:General: No Abnormalities,ABDOMEN:General: No Abnormalities,PELVIS//GI:No Abnormalities,EXTREMITIES:Capillary Refill: Right Upper: < 2 Sec,Left Arm: Weakness,Right Leg: Weakness,Left Leg: Weakness,Right Arm: Weakness,PULSE:Radial: 2+ Normal,NEURO:No Abnormalities,@09:15MENTAL:Other,Person Oriented,SKIN:HEENT:Eyes: Left: Other,Eyes: Right: Other,Head/Face: No Abnormalities,Neck/Airway: No Abnormalities,LUNG SOUNDS:General: No Abnormalities,ABDOMEN:General: No Abnormalities,PELVIS//GI:No Abnormalities,EXTREMITIES:Left Leg: Weakness,Right Leg: Weakness,Capillary Refill: Left Upper: < 2 Sec,Right Arm: Weakness,Left Arm: Weakness,PULSE:Radial: 2+ Normal,NEURO:No Abnormalities, Impression Diabetic Hyperglycemia Procedures @08:56 ALS Assessment Response: UnchangedSucceeded @09:05 IV Bolus - Normal Saline (.9% NaCl) 150cc (20 ga) Site: Antecubital-Left Response: WorseSucceeded @09:02 3-Lead ECG Response: UnchangedSucceeded @PTAIV Therapy - Saline Lock 10cc (20 ga) Site: Antecubital-Left Response: UnchangedSucceeded Timeline [facility] [address] [place] [address] EMS Patient Care Report Name: QUE CHRISTIANSON Room #: 359-P [facility] IN M.R.#: [id number] Admission: 03/11/21 Attend Phys: Sonido Gonzales MD Discharge: 03/15/21 Date of : 40 Report #: [id number] LAUNDRY HOUSEKEEPING AIDE,IV Therapy - Saline Lock 10cc 20 ga Site: Antecubital-Left,Response: UnchangedSucceeded, LAUNDRY HOUSEKEEPING AIDE,BP: 112/79 M,PULSE: 111,RR: 16 R,SPO2: 97 Ox,ETCO2: ,B,PAIN: 0,GCS: 6, 08:45,Call Received 08:45,Psap Call 08:46,Dispatched 08:48,En Route 08:54,On Scene 08:56,At Patient 08:56,ALS Assessment,Response: UnchangedSucceeded, 09:02,3-Lead ECG,Response: UnchangedSucceeded, 09:03,BP: 109/65 M,PULSE: 107,RR: 16 R,SPO2: 97 Ox,ETCO2: ,BG: ,PAIN: 0,GCS: 9, 09:05,IV Bolus - Normal Saline (.9% NaCl) 150cc 20 ga Site: Antecubital-Left,Response: WorseSucceeded, 09:08,Depart Scene 09:17,BP: 118/76 M,PULSE: 107,RR: 21 R,SPO2: 98 Ox,ETCO2: ,BG: ,PAIN: 0,GCS: 9, 09:27,BP: 109/71 M,PULSE: 107,RR: 17 R,SPO2: 97 Ox,ETCO2: ,B,PAIN: 0,GCS: 9, 09:31,At Destination 10:02,Call Closed Disclaimer v1.1 Copyright 2020 [employer] This EMS Care Summary contains data elements from the applicable legal record (which may be displayed differently). It is designed to provide pertinent information for the following purposes: continuity of care, clinical quality, and state data reporting. The complete legal record is available to ED staff and administrators of the receiving hospital in [employer]'s Patient Tracker. All data is provided "as is."
[~2021-03-11 09:36] MED LIST changes: +ACETAMINOPHEN325 M1 PO; +AUGMENTIN 875-1 EACH PO; +BAYER CHEWABLE81 MG PO; +DEKAS PLUS SOF1 EACH PO; +GLUCOPHAGE500 MG PO; +MIRALAX119 GM PO; +PEPCID20 MG PO; +PERCOCET 10-321 EAC1 PO; +PRO-STAT AWC LI30 ML PO; +VITAMIN D310 MC4 PO
[2021-03-11 09:38] VITALS: BP 111/61
--- NOTE | 2021-03-11 09:52 | NUR ---
Pt hospice nurse bedside. States she is contacting pt family to see if they want to pursue aggressive treatment such as Head Ct or not.
--- NOTE | 2021-03-11 10:23 | NUR ---
Pt to CT at this time
--- NOTE | 2021-03-11 10:34 | NUR ---
pt back from ct
[2021-03-11 10:39] LABS: ABSOLUTE NEUTROPHILS 11.9 thou/uL (1.4-8.2); BASOPHILS 0.3 % (0.0-2.0); EOSINOPHILS 0.1 % (0.0-3.0); HEMATOCRIT 33.4 % (42.0-52.0); HEMOGLOBIN 9.8 gm/dL (14.0-18.0); LYMPHOCYTES 10.7 % (24.0-44.0); MCH 22.7 pg (26.0-34.0); MCHC 29.2 g/dL (28.0-37.0); MCV 77.8 fL (80.0-100.0); MONOCYTES 3.3 % (1.0-8.0); PLATELET COUNT 402 thou/uL (150-400); POLYS 85.6 % (36.0-66.0); RBC 4.29 mil/uL (4.50-6.00); RDW 17.6 % (10.5-14.5); WBC 13.9 thou/uL (4.0-11.0)
[2021-03-11 10:49] LABS: ALBUMIN 1.8 g/dL (3.4-5.0); CALCIUM 8.8 mg/dL (8.5-10.1); CREATININE 2.5 mg/dL (0.7-1.3); MAGNESIUM 2.8 mg/dL (1.8-2.4); PHOSPHORUS 4.6 mg/dL (2.6-4.7); POTASSIUM 3.8 mmol/L (3.5-5.1); TOTAL BILIRUBIN 0.1 mg/dL (0.2-1.0); TOTAL PROTEIN 6.7 g/dL (6.4-8.2)
[2021-03-11 11:55] LABS: ANISOCYTOSIS SLIGHT; HYPOCHROMASIA 1+; PLATELET ESTIMATE NORMAL
--- NOTE | 2021-03-11 16:34 | NUR ---
Pt brief changed and pt linens and pt were cleaned
--- NOTE | 2021-03-11 16:57 | NUR ---
Pt handed off to Argenis RODRIGUEZ
[2021-03-11 17:06] VITALS: BP 110/62
[2021-03-11 19:29] VITALS: BP 119/63
[2021-03-11 20:00] VITALS: BP 132/69
--- NOTE | 2021-03-11 22:59 | NUR ---
PT ADMITTED TO 3W ROOM 359, ARRIVED TO UNIT AT APPROXIMATELY 2004 ACCOMPANIED BY ED STAFF. PT'S DAUGHTER/DPOA PRESENT AT BEDSIDE DURING ADMISSION PROCESS. VSS, ON ROOM AIR. ADMISSION ASSESSMENTS COMPLETED. PT HAS GANGRENOUS TOES ON THE RIGHT FOOT. HAS EXTENSIVE SCARRING PRESENT ON SACRAL AREA, APPEARS TO BE FROM PREVIOUS WOUNDS. PT IS AWAKE AND WITHDRAWS TO ANY TOUCH, BUT IS NONVERBAL AND UNABLE TO FOLLOW COMMANDS. CONTRACTURES NOTED X4 EXTREMITIES. SINUS TACHYCARDIA NOTED ON CARDIAC MONITORING. ROOM AIR, 96-100%. WILL CONTINUE TO OBSERVE FOR CHANGES.
[2021-03-12 00:05] VITALS: BP 120/65
[2021-03-12 04:50] VITALS: BP 113/60
[2021-03-12 07:28] VITALS: BP 118/60
[2021-03-12 09:10] LABS: CALCIUM 8.6 mg/dL (8.5-10.1); CREATININE 2.1 mg/dL (0.7-1.3); POTASSIUM 3.7 mmol/L (3.5-5.1)
[2021-03-12 11:32] VITALS: BP 130/63
--- NOTE | 2021-03-12 11:53 | EKG ---
[address] [place] [address] ELECTROCARDIOGRAM REPORT Name: QUE CHRISTIANSON Room #: 359-P ADM IN M.R.#: [id number] Admission: 03/11/21 Attend Phys: Sonido Gonzales MD Discharge: Date of : 40 Report #: [id number] [facility] ED Test Date: 2021-03-11 Test Time: 11:07:57 Pat Name: QUE CHRISTIANSON Department: Room: 359 Gender: M Narcotics Investigator: [id number] : 1940 Requested By: Derick Callahan Order Number: [id number] MD: Pablo King Measurements Intervals [place] Rate: 107 P: IN: QRS: 71 QRSD: 90 T: 250 QT: 318 QTc: 425 Interpretive Statements Sinus tachycardia Nonspecific ST and T wave abnormality Compared to ECG 08/14/2020 10:19:[address] and T wave abnormality is now present Electronically Signed On 03-12-2021 11:53:25 CODING QUALITY COORDINATOR by Pablo King [email or web address] <ELECTRONICALLY SIGNED> By: Pablo King MD, [facility] 03/12/21 1153 1107 06 Pablo King MD, FACC /EPI
--- NOTE | 2021-03-12 12:52 | NUR ---
PER CHART REVIEW, PT. WAS PLACED ON HOSPICE JUST PRIOR TO ADMISSION DUE TO MOBILITY AND COGNITIVE STATUS DECLINE. PT. HAS NOT AMBULATED IN MONTHS. P.T. NOTE STATES SPOKE WITH PT.'S FACILITY WHO REPORT PT. REQUIRES DEPENDENT LIFT INTO W/C. GIVEN PT.'S PRIOR LEVEL OF FUNCTION, HOSPICE STATUS, PT. IS NOT APPRORPIATE FOR FORMAL OT EVALUATION. ALSO NOTED, PLAN FOR RIGHT AKA TOMORROW 03/13. OT WILL SIGN OFF AT THIS TIME, PLEASE RECONSULT IF PT.'S COGNITION AND ABILITY TO PARTICIPATE IN SKILLED THERAPY SERVICES IMPROVES.
[2021-03-12 13:21] LABS: URINE BILIRUBIN NEGATIVE (Negative); URINE BLOOD 3+ (Negative); URINE CLARITY SL CLOUDY; URINE COLOR YELLOW; URINE GLUCOSE-RANDOM* 3+ (Negative); URINE KETONES NEGATIVE (Negative); URINE LEUKOCYTES-REFLEX TRACE (Negative); URINE NITRITE-REFLEX NEGATIVE (Negative); URINE PROTEIN (DIPSTICK) TRACE (Negative); URINE UROBILINOGEN 0.2 E.U./dl (0.2-1.0)
[2021-03-12 13:46] LABS: RENAL EPITHELIAL CELLS 0-3 Few /LPF (None Seen); SQUAMOUS 0-3 Few /LPF (0-3)
[2021-03-12 13:47] LABS: AMORPHOUS URATES Moderate /LPF (None Seen); BACTERIA-REFLEX 1-9 Few /HPF (None Seen); CASTS None Seen /LPF (None Seen); URINE RBC 3-10 Few /HPF (NONE SEEN); URINE WBC-REFLEX 6-15 Few /HPF (0-5)
--- NOTE | 2021-03-12 14:29 | NUR ---
ORDERS RECEIVED FOR CLINICAL SWALLOW EVALUATION; HOWEVER EVALUATION DEEMED INAPPROPRIATE THIS DATE. PATIENT HAD BEEN PLACED ON HOSPICE SERVICES AT SNF FACILITY YESTERDAY PRIOR TO HOSPITAL ADMISSION D/T SIGNIFICANT COGNITIVE DECLINE. PATIENT ADMITTED TO HOSPITAL LATER THAT DATE WITH GANGRENE IN RIGHT FOOT. PATIENT SCHEDULED FOR AMPUTATION TOMORROW D/T PALLIATIVE BENEFITS OF SURGICAL INTERVENTION. PATIENT UNABLE TO BE AROUSED THIS DATE EVEN WITH MAX CUES INCLUDING STERNAL RUB AND AUDITORY/TACTILE CUES. ONLY RESPONSES WERE MOANING. BASED ON CLINICAL PRESENTATION AND RECENT COGNITIVE DECLINE, LUMITE INJECTOR RECOMMENDS PATIENT REMAIN NPO. SKILLED INTERVENTION IS NOT CURRENTLY INDICATED. PLEASE RECONSULT SHOULD COGNITIVE STATUS IMPROVE AND RE-INITIATION OF PO DIET BE CLINICALLY INDICATED. LUMITE INJECTOR DEPT TO SIGN OFF AT THIS TIME.
--- NOTE | 2021-03-12 14:51 | NUR ---
PHYSICAL THERAPY ORDERS RECEIVED. ATTEMPTED TO EVALUATE PATIENT. PATIENT NOT FOLLOWING SIMPLE COMMANDS; RESPONDING ONLY TO PAINFUL STIMULI. PT CONTACTED PATIENT'S FACILITY, PATIENT WAS A DEPENDENT LIFT FROM BED TO WHEELCHAIR MUSIC PASTOR. PATIENT UNABLE TO PARITICIPATE IN SKILLED THERAPY AT THIS TIME. PLEASE RECONSULT IF PATIENT'S COGNITION OR ABILITY TO PARTICIPATE CHANGES.
[2021-03-12 15:26] VITALS: BP 135/72
--- NOTE | 2021-03-12 16:24 | NUR ---
RN ASSUMED PT'S CARE AT 0700AM, PT ONLY OPENS HIS BY VOICE, PT IS UNVERBAL AND PT DOES NOT FOLLOW COMMANDS, PT IS CONTINUING IV ABX , AND IV FLUID, PT'S SODIUM HAS IMPROVED , BUT STILL HIGH ( SODIUM 167 TODAY),RN PUT RODRIGUEZ CATHETER ( 16F 10ML ) PER ORDER, WOUND DR AND ORTHOPEDIC SURGICAL DR HAVE SEEING THIS PT, PT IS ON NPO , PT WILL HAVE R ABOVE KNEE AMPUTATION ( FOR R FOOT GANGRENE ) TOMORROW, RN HAS UPDATED PT'S IMFORMATION TO PT'S DPOA , WE ARE CONTINUING TO MONITIR PT.
[2021-03-12 19:09] VITALS: BP 131/65
[2021-03-13] VITALS (7 sets, daily range): BP systolic 113–140; BP diastolic 50–61
--- NOTE | 2021-03-13 04:32 | NUR ---
PT HAS BEEN MORE ALERT THIS SHIFT AND HAS RESPONDED WITH SINGLE WORD ANSWERS TO SOME QUESTIONS. HAS REMAINED NPO SINCE ADMISSION DUE TO IMPAIRED COGNITIVE STATUS/INABILITY TO SWALLOW. ORDERS FOR NPO AFTER MIDNIGHT IN PREPARATION FOR PLANNED RIGHT ABOVE THE KNEE AMPUTATION R/T GANGRENOUS TOES. D5W HAS BEEN INFUSING DUE TO NO PO INTAKE. SPOKE WITH PT'S GRANDDAUGHTER (DPOA) WHO IS PLANNING TO ARRIVE TO SIGN CONSENTS FOR SURGERY FIRST THING THIS MORNING.
[2021-03-13 05:40] LABS: HEMATOCRIT 30.7 % (42.0-52.0); HEMOGLOBIN 9.2 gm/dL (14.0-18.0); MCH 23.4 pg (26.0-34.0); MCHC 29.9 g/dL (28.0-37.0); MCV 78.3 fL (80.0-100.0); RBC 3.92 mil/uL (4.50-6.00); RDW 17.9 % (10.5-14.5); WBC 10.5 thou/uL (4.0-11.0)
[2021-03-13 05:44] LABS: CALCIUM 8.8 mg/dL (8.5-10.1); CREATININE 1.7 mg/dL (0.7-1.3); POTASSIUM 3.6 mmol/L (3.5-5.1)
--- NOTE | 2021-03-13 14:40 | O ---
[facility] [place] [address] OPERATIVE REPORT Name: QUE CHRISTIANSON Room #: 359-P [facility] IN M.R.#: [id number] Admission: 03/11/21 Attend Phys: Sonido Gonzales MD Discharge: Date of : 40 Report #: [id number] THIS REPORT FOR: cc: Sasha Terrell Beth RNP McCabe, Michael P. MD ~ DATE OF SERVICE: 03/13/2021 SERVICE: Orthopedics. FACILITY: [facility]. SURGEON: Armando Shell MD STRADDLE TRUCK OPERATOR: Odalis Ernst. PREOPERATIVE DIAGNOSES: 1. Gangrene, right foot. 2. Osteomyelitis, right forefoot. 3. Dysvascular right lower extremity with lack of arterial blood flow distal to the knee. 4. Diabetes. 5. Hypernatremia. POSTOPERATIVE DIAGNOSES: 1. Gangrene, right foot. 2. Osteomyelitis, right forefoot. 3. Dysvascular right lower extremity with lack of arterial blood flow distal to the knee. 4. Diabetes. 5. Hypernatremia. PROCEDURES: Right above-knee amputation. HISTORY: The patient is an 80-year-old gentleman who is quite ill and presented with osteomyelitis that was symptomatic and causing pain and sepsis. He was indicated for surgical treatment. We had a long discussion with him and his daughter and granddaughter about reasons for surgery with the focus on palliative measures because of his obvious pain associated with the infection and they were in agreement and wished to move forward. Based on his poor arterial supply and previous vascular procedures, the decision was made for an above-knee amputation in order to minimize the risk of wound dehiscence and return to the operating room. In addition, he is no longer ambulatory and AKA would be more advantageous and less likely to have wound complications than a below-knee amputation due to knee flexion contracture. [address] [address] OPERATIVE REPORT Name: QUE CHRISTIANSON Room #: 359-P [facility] IN ..#: [id number] Admission: 03/11/21 Attend Phys: Sonido Gonzales MD Discharge: Date of : 40 Report #: [id number] PROCEDURE IN DETAIL: After right lower extremity was correctly identified as the operative extremity, the patient was taken to the operating room and general anesthesia was induced without complications. He was padded appropriately. He was on antibiotics. Right lower extremity was prepped and draped in standard sterile fashion. Leg was elevated and exsanguinated via elevation and sterile technique and a sterile tourniquet were used. Tourniquet was inflated to 250 mmHg. A fishmouth type skin incision was made with skin flaps anteriorly and posteriorly. Skin incisions were made. Dissection was taken down to the femur, which was stripped to the periosteum and then the femoral vessels were dissected free. We placed a total of 4 silk ties around the femoral artery as we encountered a stent graft in the femoral artery at the level of the transection. The vein was dissected free and ligated as well. The sciatic nerve was dissected free and cut sharply and allowed to retract proximally. The femur was then cut and then it was bevelled and all sharp edges were rasped and bevelled. The wound was irrigated, tourniquet was let down. Hemostasis was achieved. The muscle was closed over the end of the femur with 0 Vicryl suture in bbhemz-vu-xavmd fashion. A layered approach allowed for a 4-layer closure. We continued with 0 Vicryl and then closed the fascial layer with 2-0 Vicryl and then skin martha. A sterile dressing was applied. The patient was awakened from anesthesia and taken to recovery room in stable condition. No complications. All counts were reported as correct. <ELECTRONICALLY SIGNED> By: Armando Shell MD 03/13/21 1440 0947 1007 Armando Shell MD /nt
--- NOTE | 2021-03-13 16:24 | HC ---
[facility] [place] [address] CONSULTATION Name: QUE CHRISTIANSON Room #: 359-P ADM IN M.R.#: [id number] Admission: 03/11/21 Attend Phys: Sonido Gonzales MD Discharge: Date of : 40 Report #: [id number] THIS REPORT FOR: cc: Sasha Terrell Beth RNP Jetmore, Allen B. MD ~ WOUND CARE CONSULTATION NOTE REASON FOR CONSULTATION: Gangrene of right foot. HISTORY OF PRESENT ILLNESS: The patient is an 80-year-old gentleman, transferred from [facility]. He suffers from peripheral vascular disease and diabetes mellitus type 2 and dementia. He was noted to have a decline in mental status with altered mental status and encephalopathy and unresponsiveness. He was admitted to the Emergency Room with leukocytosis, white blood count 13,900, severe hypernatremia, sodium 176, noted to have gangrene of the right foot. He has already been seen by Orthopedics, Dr. Shell, who may consider amputation, possibly transmetatarsal amputation. Consent would need to be obtained from the patient's family. I am asked to see him for wound care considerations. PAST MEDICAL HISTORY: 1. Diabetes mellitus type 2, poorly controlled. 2. Severe protein calorie malnutrition, albumin 1.8. 3. Leukocytosis. White blood count 13.9. 4. Dementia. 5. Peripheral vascular disease. ALLERGIES: No known allergies. LABORATORY DATA: On admission, sodium 176, then 167. Albumin 1.8. White blood count 13,900. PHYSICAL EXAMINATION: GENERAL: Shows chronically ill and acutely ill-appearing 80-year-old gentleman who is responsive only to pain. HEENT: Mucous membranes are dry. MEDICATIONS: The patient is arousable to painful stimuli. LUNGS: Respirations unlabored. ABDOMEN: Soft. EXTREMITIES: focus extremities exam shows gangrene of the distal right foot with mariana moist gangrene of the second and third toes, which are very mobile and appear almost ready to auto amputate from necrosis at their base. Distal foot is foul smelling. There is darkness of the foot extending to the midfoot on the dorsum. Foot is painful to touch. [facility] [address] [place] [address] CONSULTATION Name: QUE CHRISTIANSON Room #: 359-P ADM IN M.R.#: [id number] Admission: 03/11/21 Attend Phys: Sonido Gonzales MD Discharge: Date of : 40 Report #: [id number] RADIOLOGY: X-ray of right foot shows evidence of chronic osteomyelitis of the great toe with bony destruction of the proximal phalanx of the second and third toe with some soft tissue gas. Lower extremity ultrasound of the right leg shows triphasic flow in the common femoral artery. There was no identifiable flow seen in infrapopliteal calf artery, anterior tibial, posterior tibial or peroneal arteries of the right foot. IMPRESSION: 1. Dementia with altered mental status, encephalopathy and declining status. 2. Severe hypernatremia. 3. Poorly controlled diabetes mellitus type 2. 4. Severe protein calorie malnutrition, albumin 1.8. 5. Peripheral vascular disease of lower extremities with absence of flow by ultrasound in the infrapopliteal vessels with gangrene of the right foot. 6. Diabetic foot ulcer. PLAN: Order quarter strength Dakin's dressings for the foul smelling gangrenous area of the right foot, be changed daily. The patient has been seen in consultation by Orthopedic Surgery. Based on ultrasound imaging studies, will likely require below or above-knee amputation. This would require familial consent due to the patient's altered mental status. Quarter strength Dakin's dressings to the foot with Kerlix gauze wrap and a foam boot. Wound Care team will follow. <ELECTRONICALLY SIGNED> By: Phil Mckeon MD 03/13/21 1624 0915 [id number] Phil Mckeon MD /nt
[2021-03-14 03:29] VITALS: BP 134/61
[2021-03-14 04:50] LABS: CALCIUM 8.4 mg/dL (8.5-10.1); CREATININE 1.6 mg/dL (0.7-1.3); POTASSIUM 3.5 mmol/L (3.5-5.1)
[2021-03-14 05:12] LABS: HEMOGLOBIN 8.2 gm/dL (14.0-18.0); MCH 23.1 pg (26.0-34.0); MCHC 30.3 g/dL (28.0-37.0); MCV 76.3 fL (80.0-100.0); RBC 3.54 mil/uL (4.50-6.00); RDW 16.8 % (10.5-14.5)
--- NOTE | 2021-03-14 05:52 | NUR ---
patient aox1 confused and forgetful. patient able to verbalise pain.patient has been asleep most of the time this shift. pain controlled this shift. fall precaution in place. patient in bed asleep at this time breathing regular and unlaboured.
[2021-03-14 06:09] VITALS: BP 152/84
[2021-03-14 11:41] VITALS: BP 135/63
[2021-03-14 15:46] VITALS: BP 118/55
--- NOTE | 2021-03-14 16:25 | NUR ---
INITIAL ASSESSMENT: Received consult. DARY reviewed chart and spoke with nursing and attending physician. Pt was admitted from [facility] due to sepsis/osteomyelitis. Pt had right AKA on 03/13. Pt is on IV abx. Per attending physician, pt will be ready to discharge back to the facility tomorrow. DARY spoke with pt's granddtr, Bouchra, via phone. Introduced role of DARY. Pt and his live at [facility]. Pt was admitted onto hospice services with [facility] on 03/10. Per Bouchra, the plan is for pt to return to the nursing facility and be readmitted to hospice. DARY informed Bouchra that discharge is anticipated for tomorrow. DARY faxed clinical info to [place] post-acute liaison for review. DARY also faxed info to [facility]. Spoke with Lori with [facility], who states they have not received signed hospice revocation ppwk back from pt's family. However, pt was discharged from hospice on 03/11 when he came to [facility]. DARY notified Director of Case Mgmt and UR. Hospice revocation ppwk emailed to DARY. DARY forwarded the unsigned ppwk to Director of Case Mgmt and UR. Plan is for pt to discharge back to the nursing facility with hospice tomorrow. Palliative Care RUNNER MAN consulted to discuss hospice and plan of care with pt's family. DARY left voice message for Lori at [facility] to provide update and to request DME be delivered to pt's room at the nursing facility prior to pt's discharge. DARY is following to assist as needed with discharge planning.
--- NOTE | 2021-03-14 17:56 | NUR ---
Patient is alert to self this shift. Patient is confused and tries to swing at staff when they take his vitals/ blood sugars. Patient is easily redirected. Patient is NPO at this time. Patient at the beginning of this shift was med-surge/ tele. Patient refused to leave the tele leads on so telemetry was discontinued this shift. Patient is on room air. Patient has a jones catheter present and it is patent. Patients last BM was small and on 03/14/21. Patients right A.K.A shows no signs of bleeding and dressing is scheduled to be changed on 03/15/21. Patient has an IV in his right AC with D5 running at 125 mL's per hr. Patient will continue to be monitored.
[2021-03-14 18:42] VITALS: BP 129/62
[2021-03-14 19:09] VITALS: BP 141/83
--- NOTE | 2021-03-15 03:18 | NUR ---
NO MEANINGFUL COMMUNICATION TONIGHT. HE HAS BEEN TURNED AND CLEANED PRN. NO SIGNS OF PAIN. HE IS QUIET AND COMFORTABLE. ADEQUATE URINE FROM CATHETER.
[2021-03-15 03:52] VITALS: BP 124/46
[2021-03-15 06:30] LABS: CALCIUM 8.4 mg/dL (8.5-10.1); CREATININE 1.3 mg/dL (0.7-1.3); POTASSIUM 3.4 mmol/L (3.5-5.1)
[2021-03-15 07:11] VITALS: BP 138/58
--- NOTE | 2021-03-15 13:37 | NUR ---
DISCHARGE NOTE: DARY reviewed chart and spoke with nursing and attending physician. Pt is medically stable for discharge back to [facility] with [facility] today. Palliative care RESEARCH MANAGER spoke with pt's Bouchra allen, last evening. Family is in agreement with plan for pt to return to [facility] with hospice. DARY faxed discharge ppwk to [facility] and confirmed info was received with Lori. DME to be delivered to the facility by 1330. ADRY faxed discharge ppwk to [place] post-acute liaison. Confirmed info was received. DARY arranged ambulance transportation for 1600. DARY notified both hospice and [facility] liaisons. DARY spoke with pt's Bouchra allen, via phone to provide update. Bouchra is aware and in agreement with discharge plan. Bouchra asked DARY to confirm that DME is in place prior to pt's arrival. DARY contacted Lori with [facility], who confirmed the DME is en route to the facility. Chart copy reqeusted. Nursing provided with number to call report. No additional SW needs identified at this time, but is available to assist should needs arise.
[2021-03-15 15:11] VITALS: BP 137/64
--- NOTE | 2021-03-15 15:43 | NUR ---
PATIENT IS ALERT TO SELF MINIMALLY THIS SHIFT. PATIENT DOES NOT ALWAYS ACKNOWLEDGE STAFF WHEN THEY TRY TO TALK TO HIM. PATIENT IS ON ROOM AND AND MED SURGE. PATIENT IS INCONTINENT OF BOTH BOWEL AND A SMALL BM THIS SHIFT. PATIENTS WOUND CARE WAS DONE BY WOUND CARE STAFF THIS SHIFT AND A PICTURE WAS TAKEN PER PROTOCOL AND PLACED IN PATIENTS CHART. PATIENT HAS AN IV IN HIS RIGHT FOREARM THAT IS PATIENT WITH D5 RUNNING AT 125 ML'S PER HOURS. PATIENT IS SCHEDULED FOR DISCHARGE TO [facility] [place] AT 1600. REPORT WAS CALLED TO [facility] AT 1433 BY THIS RN. PATIENT WILL CONTINUE TO BE MONITORED.
--- NOTE | 2021-03-16 00:28 | HC ---
[facility] [place] [address] CONSULTATION Name: QUE CHRISTIANSON Room #: 359-P [facility] IN M.R.#: [id number] Admission: 03/11/21 Attend Phys: Sonido Gonzales MD Discharge: 03/15/21 Date of : 40 Report #: [id number] THIS REPORT FOR: cc: Sasha Terrell Beth RNP Geha, Daniel J. MD ~ DATE OF SERVICE: 03/12/2021 INFECTIOUS DISEASES CONSULTATION REASON FOR CONSULTATION: I was asked to evaluate concerning right foot gangrene. HISTORY OF PRESENT ILLNESS: The patient is an 80-year-old [facility] resident with underlying Alzheimer dementia, diabetes, peripheral vascular disease, who presents with right foot gangrene. Further workup has noted evidence of osteomyelitis and infrapopliteal peripheral vascular occlusive disease. He placed on vancomycin. Now, on hospice care. Planning on tqxgl-ksw-ouub amputation tomorrow for comfort. The patient was encephalopathic and unable to give any history. He was hypernatremic as well. ALLERGIES: None known. MEDICATIONS: As noted on his MAR, which were reviewed. PAST MEDICAL HISTORY: Stroke, coronary artery disease, glaucoma, diabetes, hypertension, anemia, anxiety, peripheral vascular disease, hyperlipidemia, BPH, previous right foot ulcers. FAMILY HISTORY: Noncontributory. SOCIAL HISTORY: longterm resident, not currently smoking, or using alcohol. REVIEW OF SYSTEMS: The patient was unable to assist in history taking. PHYSICAL EXAMINATION: GENERAL: He was afebrile, hemodynamically stable. He was cachectic in position, lying to the left, had evidence of gangrene to his forefoot with odorous drainage. No palpable pulses. Lower extremity was cool below the knee and he had a flexion contracture evident. CHEST: Clear. HEART: Regular. ABDOMEN: Soft. He was encephalopathic and unable to converse. LABORATORY DATA: Reviewed. Chest x-ray reviewed. CT scan of the head reviewed. X-ray of the right foot reviewed. Arterial Doppler of the right [facility] [address] [place] [address] CONSULTATION Name: QUE CHRISTIANSON Room #: 359[facility] IN ..#: [id number] Admission: 03/11/21 Attend Phys: Sonido Gonzales MD Discharge: 03/15/21 Date of : 40 Report #: [id number] lower extremity reviewed. IMPRESSION: An 80-year-old with underlying diabetes, peripheral vascular disease, presents now with gangrene of his right foot with evidence of osteomyelitis, first, second and third toes, also involvement of the second metatarsal head. He has no evidence of blood flow distal to the knee. He has been seen by Orthopedic Surgery. He has associated acute kidney injury. 1. Underlying dementia. 2. Hypernatremia. 3. Diabetes. 4. Coronary artery disease and hypertension. RECOMMENDATION: 1. We will continue broad antibiotic coverage adjusted for his renal failure. 2. Await surgical intervention for AKA. Anticipate finishing IV antibiotic therapy 3 days postop, if all goes well. <ELECTRONICALLY SIGNED> By: Chapo Singh MD 03/16/21 0028 1752 35 Chapo Singh MD /nt
--- NOTE | 2021-03-16 16:06 | PATH ---
[facility] [address] [address] PATHOLOGY RPT PROCEDURE Name: ASHISH MONTEIRO Room #: 359-P DIS IN M.R.#: [id number] Admission: 03/11/21 Date of : 40 Discharge: 03/15/21 Report #: [id number] [place] Case #: [id number] [facility] Accession Number: [id number] . 01 Material submitted: . leg - RIGHT ABOVE KNEE AMPUTATION. Modifiers: right, ABOVE KNEE . 01 Clinical history: . HYPERNATREMIA, AMS, SEPSIS, OSTEO ABOVE KNEE AMPUTATION (+++) GANGRENE, OSTEOMYELITIS . 02 Diagnosis: Right above knee, amputation: - Skin and soft tissue with extensive gangrenous-type necrosis and ulceration. - Bone with osteopenia and chronic fibrosing osteomyelitis. - No evidence of acute osteomyelitis identified. - Large arterial vessels with atherosclerotic narrowing with dystrophic calcifications. - Proximal skin and underlying soft tissue margin negative for inflammation or malignancy. . (ANK:mml; 03/16/2021) QLM 03/16/2021 1138 Local . 02 Electronically signed: . Sarika Sheriff MD, Pathologist NPI- [id number] . 01 Gross description: . The specimen is received fresh, labeled "Ashish Monteiro, right above knee amputation" and consists of a right dbavy-lhn-opdl amputation (63.0 cm in length by 11.5 x 9.5 cm) with an attached right foot (25.0 cm in length by 8.5 cm in diameter) with 5 attached digits and each displaying an attached costa markedly thickened nail. The first, second and third digits each display a brown and dusky area of discoloration (ranging from 4.5 x 4.0 cm to 5.0 x 4.0 cm) that involves the entirety of the second and third digits and approximately 80% of the first digit. The nearest area of discoloration comes to within 62.6 cm from the nearest surgical margin (inked black). The distal aspect of the second digit is loosely attached and displays a necrotic disruption (2.0 x 1.2 x 0.9 cm). The proximal aspect of the third digit displays an additional necrotic disruption (1.1 x 1.0 x 1.0 cm). Sectioning through the second digit reveals dusky, necrotic and softened underlying bone. The remainder of the epidermis is brown-pleitez, slightly dusky and unremarkable. The bone margin is smooth, hard and [address] [address] PATHOLOGY RPT PROCEDURE Name: ASHISH MONTEIRO Room #: 359-P DIS IN M.R.#: [id number] Admission: 03/11/21 Date of : 40 Discharge: 03/15/21 Report #: [id number] [place] Case #: [id number] unremarkable. Within the proximal posterior tibial artery is a silver metallic, cylindrical, mesh-like material (1.6 cm in length by 0.7 cm in diameter). No inscriptions are identified. Photographs are taken. Degreaser Operator sections are submitted following decalcification as follows: A1: Skin and underlying soft tissue at margin (inked black), submitted en face, represented, posterior tibial artery and vein margin (inked black), submitted en face, entirely submitted, anterior tibial artery (inked yellow), submitted en face, represented and dorsalis pedis (inked blue) with overlying skin, submitted en face, represented A2: Areas of discoloration from first and third digit, represented A3: Cross sections of digit #2 to show underlying bone, represented (TRIBAL; 03/15/2021) DKA/DKA 03/15/2021 1312 Local . 02 Pathologist provided ICD-10: I96, M85.861, M86.171 . 02 CPT . 090298, 679857 Specimen Comment: A courtesy copy of this report has been sent to [phone] Specimen Comment: [phone], Specimen Comment: Report sent to , DR LOUISE / DR SANCHEZ Performed at: 01 [facility] [address] [place] [address] [address], [place] [id number] MD Pablo Benavides MD Phone: [phone] Performed at: 02 [facility] [address] [place], [place] [id number] [address] Sarika Sheriff DR Phone: [phone]
== END 2021-03-15 16:59 | disposition hospice, home (50) | DRG 853 ==
LOC: ER 09:36 → 3W 12:55 → EROBS 12:55 → 3W 19:49
PROVIDERS: Emergency Medicine; Orthopaedic Surgery Sports Medicine; ADMIT Hospitalist; ATTEND Hospitalist
PROC: 0Y6C0Z1 Detachment at Right Upper Leg, High, Open Approach (ICD-10-PCS; principal; 2021-03-13)
DX: A41.9 Sepsis, unspecified organism (principal); E43 Unspecified severe protein-calorie malnutrition; G93.41 Metabolic encephalopathy; E11.52 Type 2 diabetes mellitus with diabetic peripheral angiopathy with gangrene; M86.171 Other acute osteomyelitis, right ankle and foot; E87.0 Hyperosmolality and hypernatremia; I25.10 Atherosclerotic heart disease of native coronary artery without angina pectoris; I10 Essential (primary) hypertension; F41.9 Anxiety disorder, unspecified; N40.0 Benign prostatic hyperplasia without lower urinary tract symptoms; E78.5 Hyperlipidemia, unspecified; F03.90 Unspecified dementia, unspecified severity, without behavioral disturbance, psychotic disturbance, mood disturbance, and anxiety; E11.621 Type 2 diabetes mellitus with foot ulcer; K21.9 Gastro-esophageal reflux disease without esophagitis; Z66 Do not resuscitate; R13.10 Dysphagia, unspecified; R53.81 Other malaise; L97.519 Non-pressure chronic ulcer of other part of right foot with unspecified severity; Z20.822 Contact with and (suspected) exposure to COVID-19; Z86.73 Personal history of transient ischemic attack (TIA), and cerebral infarction without residual deficits; Z95.1 Presence of aortocoronary bypass graft; Z87.891 Personal history of nicotine dependence; Z68.23 Body mass index [BMI] 23.0-23.9, adult
CPT/HCPCS: 10080; 10879; 50101; 50386; 51412; 53000; 56528; 57091; 57179; 62110; 62900; 70005